=== PATIENT | female | born 1970 | race Caucasian/White ===

== ENCOUNTER 2019-09-16 12:25 | Outpatient (CLI) | payer OTHER, SELFPAY ==
[2019-09-16 12:41] LABS: Basophils Absolute Auto 0.03 K/mm3 (0.00-0.10); Basophils Percent Auto 0.2 % (0.0-1.0); Eosinophils Absolute Auto 0.25 K/mm3 (0.02-0.50); Eosinophils Percent Auto 2.1 % (1.0-6.0); Hematocrit 37.2 % (35.0-49.0); Immature Granulocyte Absolute 0.05 K/mm3 (0.00-0.00); Immature Granulocyte Percent A 0.4 % (0.0-0.0); Lymphocytes Absolute Auto 3.26 K/mm3 (1.10-4.50); Lymphocytes Percent Auto 27.1 % (18.0-42.0); Mean Corpuscular HGB Conc 32.3 g/dL (32.0-36.0); Mean Corpuscular Hemoglobin 28.6 pg (27.0-31.0); Mean Corpuscular Volume 88.8 fL (78.0-102.0); Mean Platelet Volume 9.8 fl (9.2-11.8); Monocytes Absolute Auto 0.52 K/mm3 (0.10-0.90); Monocytes Percent Auto 4.3 % (2.0-11.0); Neutrophils Absolute Auto 7.9 K/mm3 (1.7-7.2); Neutrophils Percent Auto 65.9 % (50.0-70.0); Platelet Count Result 255 K/mm3 (150-420); Red Blood Count 4.19 M/mm3 (4.20-5.40); Red Cell Distribution Width 13.5 % (11.6-14.4); White Blood Count 12.1 K/mm3 (4.8-10.8)
[2019-09-16 12:58] LABS: Creatinine Urine 208.85 mg/dL (40-278); MALB Creatinine Ratio 3.2 mg/g (0-30); Microalbumin Urine Random 6.7 mg/L
[2019-09-16 13:08] LABS: Influenza Control Valid (Valid)
[2019-09-16 14:08] LABS: Alanine Aminotransferase 15 U/L (14-59); Albumin Level 3.8 g/dL (3.4-5.0); Alkaline Phosphatase 70 U/L (46-116); Anion Gap 12.6 mmol/L (7-16); Aspartate Amino Transferase 12 U/L (15-37); Bilirubin,Total 0.4 mg/dL (0.00-1.00); Blood Urea Nitrogen 15 mg/dL (7-18); Carbon Dioxide 27 mmol/L (21-32); Chloride 105 mmol/L (98-108); Estimated Glomerular Filt Rate > 60; Free T4 Free Thyroxine 0.75 ng/dL (0.76-1.46); Glucose 87 mg/dL (70-99); Osmolality Calculated 289 mOsm/kg (285-295); Potassium 4.6 mmol/L (3.5-5.1); Sodium 140 mmol/L (136-145); Thyroid Stimulating Hormone 4.02 uIU/mL (0.36-3.74)
== END 2019-09-16 12:26 | disposition home or self-care (01) ==
LOC: CHSLAB 12:27
PROVIDERS: PCP Family Medicine; Visit Provider Family Medicine
DX: J02.9 Acute pharyngitis, unspecified (principal); I10 Essential (primary) hypertension; E03.8 Other specified hypothyroidism
CPT/HCPCS: 36415; 80053; 82043; 84439; 84443; 85025; 87081; 87804; 87880

== ENCOUNTER 2019-11-15 14:54 | Outpatient (CLI) | payer OTHER, SELFPAY ==
--- NOTE | ~2019-11-15 | XR_ITS ---
EXAMINATION: XR chest 2V DATE: 11/15/2019 15:11 INDICATION: Resolved fever and cough, shortness of breath TECHNIQUE: PA and lateral views of the chest are obtained. COMPARISON: 03/31/2018 FINDINGS: The lungs are free of acute opacities. There is no pleural effusion or pneumothorax. The ca rdiomediastinal silhouette is normal. There is mild to moderate thoracic spondylosis. IMPRESSION: 1. No acute cardiopulmonary abnormality. Reviewed, dictated and finalized at location A.
[2019-11-15 15:23] LABS: Influenza Control Valid (Valid)
== END 2019-11-15 14:55 | disposition home or self-care (01) ==
LOC: CHSLAB 14:56
PROVIDERS: PCP Family Medicine; Visit Provider Family Medicine
DX: R05 Cough (principal)
CPT/HCPCS: 71046; 87804

== ENCOUNTER 2020-04-08 09:59 | Outpatient (CLI) | payer OTHER, SELFPAY ==
[2020-04-08 11:08] LABS: Free T4 Free Thyroxine 0.98 ng/mL (0.78-2.19)
[2020-04-11 02:40] LABS: Thyroid Peroxidase Antibodies <1 IU/mL (<9)
[2020-04-12 05:44] LABS: Triiodothyronine T3 Free 2.6 pg/mL (2.3-4.2)
[2020-04-14 13:57] LABS: Thyroid Stimulating Immunoglob <89 % baseline (<140)
== END 2020-04-08 10:00 | disposition home or self-care (01) ==
PROVIDERS: PCP Family Medicine; Visit Provider Family Medicine
DX: E03.8 Other specified hypothyroidism (principal)
CPT/HCPCS: 36415; 84439; 84443; 84445; 84481; 86376

== ENCOUNTER 2021-08-13 09:01 | Outpatient (CLI) | payer OTHER, SELFPAY ==
--- NOTE | 2021-08-13 09:20 | PC.NURSE ---
Pt to room 227 amb. A&Ox3. Complains of SOB, has been since she was diagnosed. Infusion plan of care explained, consent read and signed. Pt has no questions or comments. Oriented to room. Call simmons in reach. Reminded to call with needs.
[2021-08-13] MEDS: ACETAMINOPHEN 325 MG TABLET 650 MG PO (09:38)
[2021-08-13] MEDS: diphenhydrAMINE HCl CAP 25 MG CAPSULE PO (09:38)
[2021-08-13] MEDS: FAMOTIDINE 20 MG TABLET PO (09:38)
--- NOTE | 2021-08-13 10:50 | PC.NURSE ---
Pt tolerated infusion well. Discharged to home amb per self.
== END 2021-08-13 09:02 | disposition home or self-care (01) ==
LOC: CHSTREATRM 09:03
PROVIDERS: PCP Family Medicine; Visit Provider Family Medicine
DX: U07.1 COVID-19 (principal); I10 Essential (primary) hypertension
CPT/HCPCS: A9270; M0245; Q0245

== ENCOUNTER 2021-08-21 14:16 | Outpatient (CLI) | payer OTHER, SELFPAY ==
--- NOTE | ~2021-08-21 | XR_ITS ---
EXAMINATION: XR chest 2V DATE: 08/21/2021 14:42 INDICATION: Cough. COVID-19 pneumonia. TECHNIQUE: Frontal and lateral views of the chest were obtained. COMPARISON: Chest 2 views 11/15/2019 FINDINGS: There are patchy airspace opacities in right midlung zone and all left lung zones. No pleur al effusion or pneumothorax. The heart size is normal. There is mild chronic anterior wedging of T12 vertebral body. IMPRESSION: 1. Multifocal lung disease, consistent with COVID-19 pneumonia. Reviewed, dictated and finalized at location B. PROOF DOOR MAKER
[2021-08-21 15:09] LABS: Basophils Absolute Auto 0.03 K/mm3 (0.00-0.10); Basophils Percent Auto 0.4 % (0.0-1.0); Eosinophils Percent Auto 1.3 % (1.0-6.0); Hematocrit 37.8 % (35.0-49.0); Hemoglobin 12.4 g/dL (12.0-15.0); Immature Granulocyte Absolute 0.07 K/mm3 (0.00-0.00); Immature Granulocyte Percent A 0.9 % (0.0-0.0); Lymphocytes Absolute Auto 2.54 K/mm3 (1.10-4.50); Lymphocytes Percent Auto 32.1 % (18.0-42.0); Mean Corpuscular HGB Conc 32.8 g/dL (32.0-36.0); Mean Corpuscular Hemoglobin 29.6 pg (27.0-31.0); Mean Corpuscular Volume 90.2 fL (78.0-102.0); Mean Platelet Volume 9.7 fl (9.2-11.8); Monocytes Absolute Auto 0.42 K/mm3 (0.10-0.90); Monocytes Percent Auto 5.3 % (2.0-11.0); Neutrophils Absolute Auto 4.8 K/mm3 (1.7-7.2); Platelet Count Result 300 K/mm3 (150-420); Red Blood Count 4.19 M/mm3 (4.20-5.40); Red Cell Distribution Width 12.7 % (11.6-14.4); White Blood Count 7.9 K/mm3 (4.8-10.8)
[2021-08-21 15:46] LABS: Alanine Aminotransferase 23 U/L (14-59); Alkaline Phosphatase 81 U/L (46-116); Anion Gap 9 mmol/L (8-16); Aspartate Amino Transferase 13 U/L (15-37); Bilirubin,Total 0.2 mg/dL (0.00-1.00); Blood Urea Nitrogen 19 mg/dL (7-18); Calcium 8.1 mg/dL (8.5-10.1); Carbon Dioxide 28 mmol/L (21-32); Chloride 102 mmol/L (98-108); Estimated Glomerular Filt Rate > 60; Glucose 106 mg/dL (70-99); Osmolality Calculated 290 mOsm/kg (285-295); Potassium 4.2 mmol/L (3.5-5.1); Sodium 139 mmol/L (136-145); Total Protein 6.2 g/dL (6.4-8.2)
[2021-08-21 16:21] LABS: D Dimer 1.04 mg/L (0.19-0.50)
== END 2021-08-21 14:17 | disposition home or self-care (01) ==
LOC: CHSLAB 14:19
PROVIDERS: PCP Family Medicine; Visit Provider Family Medicine
DX: R05.9 Cough, unspecified (principal); U07.1 COVID-19
CPT/HCPCS: 36415; 71046; 80053; 85025; 85380

== ENCOUNTER 2021-08-21 17:48 | Emergency (ER) | payer OTHER, SELFPAY ==
[2021-08-21 17:55] VITALS: BP 164/88; PULSE 80; RESP 17; TEMP 37.1; O2SAT 97
--- NOTE | 2021-08-21 20:04 | PC.NURSE ---
Pt ambulatory to intake, states she's here for a cat scan because my d-dimer is elevated . States she lives in [place] and is just going to go to their hospital and have it done.
== END 2021-08-21 20:04 | disposition left against medical advice (07) ==
LOC: ANHED 20:10
PROVIDERS: PCP Family Medicine
DX: R79.1 Abnormal coagulation profile (principal)
CPT/HCPCS: 99199

== ENCOUNTER 2021-08-21 20:32 | Emergency (ER) | payer OTHER, SELFPAY ==
--- NOTE | ~2021-08-21 | CT_ITS ---
EXAMINATION: CTA chest PE protocol DATE: 08/21/2021 22:10 INDICATION: Shortness of breath TECHNIQUE: Computed tomography angiography (CTA) of the chest was performed with 100 mL Omnipaque-350 intravenous contrast timed to evaluate the pulmonary arteries. Coronal maximum intensity projection 3D-reconstructions were created by the technologist. The dose-length product (DLP) was 841.73 mGy-cm. Automated exposure control and iterative reconstruction technique were employed. COMPARISON: None. FINDINGS: The pulmonary arteries are well-opacified. No pulmonary embolism is identified. Respiratory motion artifact gives the false appearance of pulmonary emboli in the left lower lobe. There are pat genaro nodular and groundglass opacities throughout the lungs. There is no pleural effusion or pneumotho rax. The heart size is normal. There is mild bilateral hilar and mediastinal lymphadenopathy. There i s an age-indeterminate compression fracture of the T12 vertebral body. IMPRESSION: 1. No pulmonary embolus identified. 2. Patchy nodular and groundglass opacities throughout the lungs, consistent with multifocal pneumoni a, possibly COVID 19. Reviewed, dictated and finalized at location F. ODYNAMICS PROFESSOR IMPRESSION: 1. No pulmonary embolus identified. 2. Patchy nodular and groundglass opacities throughout the lungs, consistent wi th multifocal pneumonia, possibly COVID 19.
[2021-08-21 20:56] VITALS: BP 172/90; PULSE 72; RESP 18; TEMP 36.7; O2SAT 97
--- NOTE | 2021-08-21 20:58 | ED.SOB ---
HPI - SOB/Dyspnea General Chief Complaint: Unspecified Stated Complaint: sent from doctor for elevated D-Dimer Time Seen by Provider: 08/21/21 20:58 Source: patient Mode of arrival: ambulatory Limitations: no limitations History of Present Illness HPI Narrative: 50-year-old woman comes in today after having had a positive D-dimer at her doctor's office. She was diagnosed with COVID on August 09 after having been symptomatic for 3 days. She went to her doctor's office today still having some shortness of breath but improving. She was put on doxycycline and amoxicillin and instructed to be screen for PE. Cough is nonproductive or productive of clear sputum and she is no longer having fever. She denies chest pain, hemoptysis. She has no personal history of VTE. She received antibody (bamlanivimab/etesevimab) infusion on August 13. MD elicited complaint: shortness of breath Pertinent past history: pneumonia Context: recent illness Timing: constant Severity: moderate Exacerbating factors: exertion and talking Relieving factors: rest Associated symptoms: cough Treatment prior to arrival: none Related Data Home oxygen amount: none Home Medications Medication Instructions Recorded Confirmed alprazolam 0.5 mg PO DAILY 08/21/21 08/21/21 amoxicillin 875 mg PO BID 08/21/21 08/21/21 citalopram 40 mg PO DAILY 08/21/21 08/21/21 doxycycline monohydrate 100 mg PO BID 08/21/21 08/21/21 irbesartan-hydrochlorothiazide 150 tablet PO DAILY 08/21/21 08/21/21 levothyroxine [Synthroid] 100 mcg PO DAILY 08/21/21 08/21/21 omeprazole 20 mg PO DAILY 08/21/21 08/21/21 zolpidem 10 mg PO DAILY 08/21/21 08/21/21 Allergies Allergy/AdvReac Type Severity Reaction Status Date / Time No Known Allergies Allergy Mild Verified 04/09/10 16:19 Review of Systems Constitutional: Constitutional: Denies chills and Denies fever(s) ENT: Denies nasal congestion and Denies sore throat Cardiovascular: Cardiovascular: Denies chest pain and Denies radiating jaw, neck or arm pain Respiratory: Respiratory: Reports cough, Reports dyspnea and Denies wheezing Gastrointestinal: Gastrointestinal: Denies abdominal pain, Denies diarrhea, Denies nausea and Denies vomiting Integumentary/Breasts: Skin/Breast: Denies pruritus, Denies erythema and Denies rash Neurologic: Denies vertigo, Denies dizziness and Denies syncope [facility] Past Medical History Medical History (Updated 08/21/21 @ 22:45 by Adair Harper MD) GERD (gastroesophageal reflux disease) Hypertension Hypothyroidism Social History Social History (Updated 08/21/21 @ 21:15 by Adair Harper MD) Smoking status: Never smoker Living arrangements: with family Exam Const: General: healthy appearing, no acute distress and alert Orientation/consciousness: patient oriented x3 Limitations: no limitations HENMT: Head: normal to inspection Face and sinus: normal facial exam Mouth: Yes moist mucous membranes Throat: posterior oropharynx normal Eyes: Conjunctivae: conjunctivae normal Pupils: Equal, round and reactive pupils present EOM: EOMs intact bilaterally Resp: Effort & Inspection: normal respiratory effort and not labored Auscultation: clear to auscultation bilaterally, no rales, no rhonchi, no wheezes and diminished lung sounds (Mildly throughout) Cardio: Rate: regular rate Rhythm: regular rhythm Heart sounds: no murmurs Skin: General skin exam: normal color, no jaundice and no pallor Rashes: no rashes Neuro: General: patient oriented x3, moves all extremities, no focal motor deficits and CN's II-XI intact bilaterally Speech: normal speech Gait exam (Neuro): Normal gait present Extrem: General: normal to inspection and no clubbing, cyanosis or edema Psych: Mental Status: mental status grossly normal Affect: normal affect Attitude: cooperative Thought content: Yes Normal thought content present Course Vital Signs Vital signs: Vital Signs Temperature 36.7 C 08/11
[2021-08-21 21:18] LABS: SPREG INTERNAL CONTROL Positive; Serum Qual hCG Negative
[2021-08-21 22:46] VITALS: BP 151/97; PULSE 70; RESP 18; TEMP 36.6; O2SAT 96
== END 2021-08-21 22:53 | disposition home or self-care (01) ==
PROVIDERS: Emergency Provider Emergency Medicine; PCP Family Medicine
DX: R79.1 Abnormal coagulation profile (principal); R06.02 Shortness of breath
CPT/HCPCS: 36415; 71275; 84703; 99282; 99284; Q9967

== ENCOUNTER 2021-08-22 08:08 | Outpatient (CLI) | payer OTHER, SELFPAY ==
--- NOTE | ~2021-08-22 | US_ITS ---
EXAMINATION: US venous doppler [facility] DATE: 08/22/2021 08:35 INDICATION: Dyspnea TECHNIQUE: Grayscale ultrasound images without and with compression and Doppler ultrasound images of the bilateral lower extremity veins were obtained. COMPARISON: None. FINDINGS: The visualized portions of right common femoral vein, profunda (deep) femoral vein, femoral vein, pop liteal vein, posterior tibial veins, peroneal veins, gastrocnemius vein and greater saphenous vein ou tflow are patent. The visualized portions of left common femoral vein, profunda femoral vein, femoral vein, popliteal v ein, posterior tibial veins, peroneal veins, gastrocnemius vein and greater saphenous vein outflow ar e patent. IMPRESSION: 1. No deep venous thrombosis in either lower limb. Reviewed, dictated and finalized at location A. N DRIVER
== END 2021-08-22 08:09 | disposition home or self-care (01) ==
LOC: CHSIMG 08:10
PROVIDERS: PCP Family Medicine; Visit Provider Emergency Medicine
DX: R06.00 Dyspnea, unspecified (principal); R79.89 Other specified abnormal findings of blood chemistry
CPT/HCPCS: 93970

== ENCOUNTER 2022-01-03 11:09 | Outpatient (CLI) | payer OTHER, SELFPAY ==
--- NOTE | ~2022-01-03 | US_ITS ---
US soft tissue head and neck 01/03/2022 14:20 Indication: Enlarged lymph nodes. Acute lymphangitis. Procedure: High-resolution ultrasound of the right face/neck Comparison: No prior studies for comparison. Findings: In the area of palpable concern near the parotid glands there are 2 lymph nodes with normal fatty hilum measuring 7 and 6 mm maximum dimension, within normal limits. No suspicious masses are i dentified. Impression: 1: Normal lymph nodes of the right facial region measuring up to 7 mm maximum dimension which do not appear pathologic. Reviewed, dictated and finalized at location A. Impression: 1: Normal lymph nodes of the right facial region measuring up to 7 mm maximum d imension which do not appear pathologic.
--- NOTE | ~2022-01-03 | XR_ITS ---
XR chest 2V DATE: 01/03/2022 11:47 INDICATION: Shortness of breath and lethargy since Covid 19 infection in August 2021 TECHNIQUE: 2 views COMPARISON: 08/21/2021 CT the pulmonary scan 08/21/2021 2 view chest FINDINGS: Normal heart size. No hilar or mediastinal enlargement. The lungs are clear of infiltrate o r consolidation. No pleural effusion or pulmonary vascular congestion or pneumothorax. Degenerative c hanges of the thoracic spine. IMPRESSION: No active cardiopulmonary disease Reviewed, dictated and finalized at location A.
--- NOTE | ~2022-01-03 | US_ITS ---
US axilla RT 01/03/2022 14:21 Indication: Palpable right axillary lump with pain. History of Covid shot on 11/26/2021 Procedure: High-resolution Limited ultrasound of the right axilla Comparison: No prior studies for comparison. Findings: There are 2 lymph nodes identified in the area of palpable concern largest measuring 2.1 x 2 x 1.2 cm and second one measuring 1.5 x 1.2 x 0.9 cm. Both lymph nodes exhibit normal fatty hilum. No other masses or fluid collections. Impression: 1: Mildly prominent right axillary lymph nodes with normal fatty hilum in the area of palpable concer n. These are likely benign reactive lymph nodes. Recommend follow-up ultrasound as clinically indicat ed. Reviewed, dictated and finalized at location A. Impression: 1: Mildly prominent right axillary lymph nodes with normal fatty hilum in the a sanna of palpable concern. These are likely benign reactive lymph nodes. Recommen d follow-up ultrasound as clinically indicated.
[2022-01-03 11:32] LABS: Basophils Absolute Auto 0.03 K/mm3 (0.00-0.10); Basophils Percent Auto 0.3 % (0.0-1.0); Hematocrit 36.6 % (35.0-49.0); Hemoglobin 11.8 g/dL (12.0-15.0); Immature Granulocyte Absolute 0.04 K/mm3 (0.00-0.00); Immature Granulocyte Percent A 0.4 % (0.0-0.0); Lymphocytes Percent Auto 29.5 % (18.0-42.0); Mean Corpuscular HGB Conc 32.2 g/dL (32.0-36.0); Mean Corpuscular Hemoglobin 28.9 pg (27.0-31.0); Mean Corpuscular Volume 89.7 fL (78.0-102.0); Mean Platelet Volume 9.9 fl (9.2-11.8); Monocytes Percent Auto 5.1 % (2.0-11.0); Neutrophils Absolute Auto 6.3 K/mm3 (1.7-7.2); Neutrophils Percent Auto 63.7 % (50.0-70.0); Platelet Count Result 270 K/mm3 (150-420); Red Blood Count 4.08 M/mm3 (4.20-5.40); Red Cell Distribution Width 12.8 % (11.6-14.4); White Blood Count 9.8 K/mm3 (4.8-10.8)
[2022-01-03 11:44] LABS: Add Urine Microscopic? YES; Appearance Urine Clear (Clear); Bilirubin Urine Negative (Negative); Blood Urine 2+ (Negative); Color Urine Light Yellow (Yellow); Glucose Urine UA Negative (Negative); Ketones Urine Negative (Negative); Leukocyte Esterase Ur Negative (Negative); Nitrate Urine Negative (Negative); Protein Urine Negative (Negative); Urobilinogen Urine 0.2 mg/dL (0.2-1.0)
[2022-01-03 11:46] LABS: Squamous Epithelial Cell Urine Few /hpf (Few); WBC Urine 0-3 /hpf (0-3)
[2022-01-03 11:48] LABS: Bacteria Urine 1+ /hpf
[2022-01-03 12:00] LABS: Alanine Aminotransferase 15 U/L (14-59); Alkaline Phosphatase 68 U/L (46-116); Anion Gap 5 mmol/L (8-16); Aspartate Amino Transferase 12 U/L (15-37); Bilirubin,Total 0.2 mg/dL (0.00-1.00); Blood Urea Nitrogen 13 mg/dL (7-18); Calcium 7.9 mg/dL (8.5-10.1); Carbon Dioxide 28 mmol/L (21-32); Chloride 103 mmol/L (98-108); Creatine Kinase 90 U/L (26-192); Estimated Glomerular Filt Rate > 60; Free T4 Free Thyroxine 1.07 ng/dL (0.76-1.46); Glucose 80 mg/dL (70-99); Osmolality Calculated 281 mOsm/kg (285-295); Potassium 4.2 mmol/L (3.5-5.1); Sodium 136 mmol/L (136-145); Thyroid Stimulating Hormone 0.18 uIU/mL (0.36-3.74); Total Protein 6.6 g/dL (6.4-8.2)
[2022-01-03 12:12] LABS: SARS-CoV-2 RNA PCR Negative (Negative)
[2022-01-03 12:38] LABS: Erythrocyte Sedimentation Rate 30 mm/hr (0-20)
== END 2022-01-03 11:10 | disposition home or self-care (01) ==
LOC: CHSIMG 11:14
PROVIDERS: PCP Family Medicine; Visit Provider Family Medicine
DX: M79.10 Myalgia, unspecified site (principal); R53.83 Other fatigue; R06.00 Dyspnea, unspecified; R59.1 Generalized enlarged lymph nodes; L03.121 Acute lymphangitis of right axilla
CPT/HCPCS: 36415; 71046; 76536; 76882; 80053; 81001; 82550; 84439; 84443; 85025; 85652; C9803; U0003; U0005

== ENCOUNTER 2022-02-05 08:39 | Outpatient (CLI) | payer OTHER, SELFPAY ==
--- NOTE | 2022-02-05 11:00 | NEURO_ITS ---
Impression: # Complains of numbness and pain in right upper extremity. # Evolving right Carpal Tunnel Syndrome. # Mild right ulnar neuropathy across the elbow. # Needle/EMG exam not requested. Nerve Conduction Studies Anti Sensory Summary Table Stim Site NR Peak (ms) P-T Amp (?V) Site1 Site2 Delta-P (ms) Dist (cm) Forrest (m/s) Right Median Anti Sensory (2-3nd Digit) Wrist 4.3 26.3 Wrist 2-3nd Digit 4.3 14.0 33 Wrist 4.3 42.7 Wrist 2-3nd Digit 4.3 14.0 33 Right Radial Anti Sensory (Base 1st Digit) Wrist 2.1 31.0 Wrist Base 1st Digit 2.1 0.0 Right Ulnar Anti Sensory (5th Digit) Wrist 2.2 43.5 Wrist 5th Digit 2.2 14.0 64 Motor Summary Table Stim Site NR Onset (ms) O-P Amp (mV) Site1 Site2 Delta-0 (ms) Dist (cm) Forrest (m/s) Right Median Motor (Abd Poll Brev) Wrist 3.4 1.2 Elbow Wrist 5.3 28.0 53 Elbow 8.7 0.5 Right Ulnar Motor (Abd Dig Minimi) Wrist 2.2 7.0 A Elbow Wrist 6.2 31.0 50 A Elbow 8.4 4.9 B Elbow Wrist 3.6 20.0 56 B Elbow 5.8 3.2 F Wave Studies NR F-Lat (ms) L-R F-Lat (ms) Right Median (Mrkrs) (Abd Poll Brev) 29.25 Right Ulnar (Mrkrs) (Abd Dig Min) 28.05 MTDD
== END 2022-02-05 08:40 | disposition home or self-care (01) ==
LOC: ANHNEURO 08:45
PROVIDERS: PCP Family Medicine; Visit Provider Family Medicine
DX: G56.21 Lesion of ulnar nerve, right upper limb (principal); G56.01 Carpal tunnel syndrome, right upper limb
CPT/HCPCS: 95909

== ENCOUNTER 2022-02-08 09:14 | Outpatient (CLI) | payer OTHER, SELFPAY ==
--- NOTE | ~2022-02-08 | MR_ITS ---
EXAMINATION: MRA brain wo con DATE: 02/08/2022 10:15 INDICATION: Chronic daily headaches and less frequent right-sided migraines. TECHNIQUE: Magnetic resonance angiography (MRA) of the brain was performed without intravenous contrast by the 3 D [id number] technique. COMPARISON: None. FINDINGS: There is normal flow related signal seen within the vertebral, basilar and internal carotid arteries. There is no proximal stenosis. Vertebral arteries are codominant. There are no aneurysms identified . Both A1 and P1 segments are patent. The right P1 segment is smaller than the left with collateral flow arising from a similar sized patent right posterior communicating artery. There is also a patent anterior communicating artery. Flow in the cerebral arteries is symmetric. Visualized portion of the brain appears normal. IMPRESSION: 1. Unremarkable cerebral MR angiogram with no hemodynamically significant stenosis or aneurysm. Reviewed, dictated and finalized at location A. IMPRESSION: 1. Unremarkable cerebral MR angiogram with no hemodynamically significant steno sis or aneurysm.
== END 2022-02-08 09:15 | disposition home or self-care (01) ==
PROVIDERS: PCP Family Medicine; Visit Provider Family Medicine
DX: R51.9 Headache, unspecified (principal)
CPT/HCPCS: 70544

== ENCOUNTER 2022-02-19 12:53 | Outpatient (CLI) | payer OTHER, SELFPAY ==
--- NOTE | ~2022-02-19 | MMUS_ITS ---
EXAMINATION: MM diagnostic pavan BI w elvia, US breast RT limited HISTORY: Pain in the outer right breast and right axilla TECHNIQUE: Craniocaudal, mediolateral, and mediolateral oblique 3-D tomosynthesis images of the breas ts were performed and synthetic 2-D images were generated. CAD analysis was submitted and interpreted . High resolution limited right breast ultrasound was performed. COMPARISON: 10/25/2016, 06/21/2000 BREAST PARENCHYMAL COMPOSITION: There are scattered areas of fibroglandular density. FINDINGS: MAMMOGRAPHIC FINDINGS: Right breast: No mammographic correlate is identified for the patient's right breast pain. There is n o suspicious mass, calcification, or architectural distortion to suggest malignancy. There has been no suspicious interval change. Left breast: A stable intramammary lymph node is noted in the upper outer quadrant of the left breast . There is no suspicious mass, calcification, or architectural distortion to suggest malignancy. The re has been no suspicious interval change. ULTRASOUND: There is no evidence of focal abnormal solid or cystic mass in the vicinity of the patient reported r ight breast or right axillary pain IMPRESSION: 1. No specific mammographic or sonographic correlate is identified for the patient's right breast or right axillary pain. Further evaluation at this time should be based on clinical assessment. Continue d follow-up physical examination is recommended. 2. Recommend routine screening mammography in one year. BI-RADS Category 2: Benign finding(s). Reviewed, dictated and finalized at location A. IMPRESSION: 1. No specific mammographic or sonographic correlate is identified for the aubrey ent's right breast or right axillary pain. Further evaluation at this time shou ld be based on clinical assessment. Continued follow-up physical examination is recommended. 2. Recommend routine screening mammography in one year. BI-RADS Category 2: Benign finding(s).
== END 2022-02-19 12:54 | disposition home or self-care (01) ==
LOC: ANHIMG 12:58
PROVIDERS: PCP Family Medicine; Visit Provider Obstetrics & Gynecology
DX: N64.4 Mastodynia (principal)
CPT/HCPCS: 76642; 77062; 77066; G0279

== ENCOUNTER 2022-04-24 19:42 | Outpatient (CLI) | payer OTHER, SELFPAY ==
--- NOTE | ~2022-04-24 | XR_ITS ---
EXAMINATION: XR chest 2V Exam Date/Time: 04/24/2022 20:08 CDT HISTORY: MID CP X 12 HOURS Comparison: 01/03/2022. RESULT: Lines, tubes, and devices: None. Lungs and pleura: Clear. Cardiomediastinal silhouette: Stable. Other: No acute osseous or upper abdominal finding. IMPRESSION: No acute cardiopulmonary process. Reviewed, dictated and finalized at location K.
--- NOTE | 2022-04-24 20:18 | ECG_ITS ---
Measurements Intervals [place] Rate: 60 P: 30 AL: 148 QRS: -2 QRSD: 87 T: 23 QT: 437 QTc: 440 Interpretive Statements SINUS RHYTHM VOLTAGE CRITERIA FOR LVH BORDERLINE ECG NO PREVIOUS ECG AVAILABLE FOR COMPARISON Electronically Signed On 04-24-2022 21:38:15 CDT by Luiz De Luna D.O.
[2022-04-24 20:29] LABS: Add Urine Microscopic? NO; Appearance Urine Clear (Clear); Bilirubin Urine Negative (Negative); Blood Urine Negative (Negative); Color Urine Yellow (Yellow); Glucose Urine UA Negative (Negative); Ketones Urine Negative (Negative); Leukocyte Esterase Ur Negative (Negative); Nitrate Urine Negative (Negative); Protein Urine Negative (Negative); Specific Grav Ur >= 1.030 (1.010-1.020); Urobilinogen Urine 0.2 mg/dL (0.2-1.0); pH Urine 5.5 (5.0-8.0)
[2022-04-24 20:30] LABS: Basophils Absolute Auto 0.03 K/mm3 (0.00-0.10); Basophils Percent Auto 0.3 % (0.0-1.0); Eosinophils Absolute Auto 0.11 K/mm3 (0.02-0.50); Eosinophils Percent Auto 1.1 % (1.0-6.0); Hematocrit 35.5 % (35.0-49.0); Hemoglobin 11.5 g/dL (12.0-15.0); Immature Granulocyte Absolute 0.03 K/mm3 (0.00-0.00); Immature Granulocyte Percent A 0.3 % (0.0-0.0); Lymphocytes Absolute Auto 3.51 K/mm3 (1.10-4.50); Lymphocytes Percent Auto 34.1 % (18.0-42.0); Mean Corpuscular HGB Conc 32.4 g/dL (32.0-36.0); Mean Corpuscular Hemoglobin 29.5 pg (27.0-31.0); Monocytes Absolute Auto 0.53 K/mm3 (0.10-0.90); Monocytes Percent Auto 5.2 % (2.0-11.0); Neutrophils Absolute Auto 6.1 K/mm3 (1.7-7.2); Platelet Count Result 282 K/mm3 (150-420); Red Cell Distribution Width 12.9 % (11.6-14.4); White Blood Count 10.3 K/mm3 (4.8-10.8)
[2022-04-24 20:42] LABS: Alanine Aminotransferase 18 U/L (14-59); Albumin Level 3.4 g/dL (3.4-5.0); Alkaline Phosphatase 78 U/L (46-116); Anion Gap 4 mmol/L (8-16); Aspartate Amino Transferase 12 U/L (15-37); Bilirubin,Total 0.3 mg/dL (0.00-1.00); Blood Urea Nitrogen 20 mg/dL (7-18); Calcium 8.3 mg/dL (8.5-10.1); Carbon Dioxide 31 mmol/L (21-32); Chloride 102 mmol/L (98-108); Creatine Kinase 63 U/L (26-192); Estimated Glomerular Filt Rate 59; Glucose 111 mg/dL (70-99); Osmolality Calculated 287 mOsm/kg (285-295); Sodium 137 mmol/L (136-145); Total Protein 6.6 g/dL (6.4-8.2); Troponin I 4.4 ng/L (0.00-60.4)
[2022-04-24 20:45] LABS: Creatine Kinase MB < 0.50 ng/mL (0.00-5.00)
[2022-04-24 21:07] LABS: HIV 1 P24 AG Negative (Negative); HIV 1/2 AB Negative (Negative)
[2022-04-25 17:00] LABS: Ferritin 26 ng/mL (8-252); Iron 33 ug/dL (50-170); Percent Iron Saturation 10 % (12-57)
[2022-04-26 13:10] LABS: MALB Creatinine Ratio 2.7 mg/g (0-30)
[2022-04-29 17:43] LABS: RPR Screen Non-Reactive (Non-Reactive)
== END 2022-04-24 19:43 | disposition home or self-care (01) ==
PROVIDERS: PCP Family Medicine; Visit Provider Family Medicine
DX: Z20.2 Contact with and (suspected) exposure to infections with a predominantly sexual mode of transmission (principal); I10 Essential (primary) hypertension; R07.9 Chest pain, unspecified; E03.8 Other specified hypothyroidism
CPT/HCPCS: 36415; 71046; 80053; 81003; 82043; 82550; 82553; 82728; 83540; 83550; 84443; 84484; 85025; 86592; 86703; 87491; 87591; 87661; 93005

== ENCOUNTER 2022-04-29 16:33 | Outpatient (CLI) | payer OTHER, SELFPAY ==
--- NOTE | ~2022-04-29 | US_ITS ---
EXAMINATION: US pelvic complete w TV DATE: 04/29/2022 17:12 INDICATION: N93.9 - Abnormal uterine and vaginal bleeding, unspecified TECHNIQUE: Multiple transabdominal and endovaginal sonographic images of the pelvis were obtained. COMPARISON: None. FINDINGS: Uterus: 7.4 x 4.9 x 5.4 cm. 5 mm cystic area adjacent to the endometrium fundus. Endometrial complex measures 5 mm. Right Ovary: 2.2 x 1.3 x 1.4 cm. Vascular flow is present. 9 mm circumscribed right ovarian lesion li mo representing a hemorrhagic cyst, endometrioma or dermoid. Left Ovary: 2.1 x 1.6 x 1.0 cm. 7 mm cyst/dominant follicle. Vascular flow is present. There is no free fluid in the pelvis. IMPRESSION: 5 mm subendometrial cystic area, if testing is negative this finding likely represents a be nign cystic structure and is of doubtful clinical significance. 9 mm right ovarian hemorrhagic cyst, endometrioma, or dermoid. Reviewed, dictated and finalized at location K. IMPRESSION: 5 mm subendometrial cystic area, if testing is negative this finding likely represents a benign cystic structure and is of doubtful clinical signifi cance. 9 mm right ovarian hemorrhagic cyst, endometrioma, or dermoid.
== END 2022-04-29 16:34 | disposition home or self-care (01) ==
PROVIDERS: PCP Family Medicine; Visit Provider Obstetrics & Gynecology
DX: N93.9 Abnormal uterine and vaginal bleeding, unspecified (principal); N83.201 Unspecified ovarian cyst, right side
CPT/HCPCS: 76830; 76856

== ENCOUNTER 2022-06-13 10:36 | Outpatient (CLI) | payer OTHER, SELFPAY ==
[2022-06-13 11:27] LABS: Influenza A QL RT-PCR Negative (Negative); Influenza B QL RT-PCR Negative (Negative); SARS-CoV-2 RNA PCR Negative (Negative)
[2022-06-13 11:28] LABS: RSV RNA, RT-PCR Negative (Negative)
== END 2022-06-13 10:37 | disposition home or self-care (01) ==
LOC: CHSLAB 10:37
PROVIDERS: PCP Family Medicine; Visit Provider Family Medicine
DX: R05.1 Acute cough (principal); Z20.822 Contact with and (suspected) exposure to COVID-19
CPT/HCPCS: 87502; 87637; U0003; U0005

== ENCOUNTER 2022-09-11 17:18 | Outpatient (CLI) | payer OTHER, SELFPAY ==
[2022-09-11 18:08] LABS: Thyroid Stimulating Hormone 1.56 uIU/mL (0.36-3.74)
[2022-09-14 04:45] LABS: FSH 4.6 mIU/mL (***)
[2022-09-18 22:01] LABS: Estradiol, Ultrasensitive 152 pg/mL
== END 2022-09-11 17:19 | disposition home or self-care (01) ==
LOC: CHSLAB 17:19
PROVIDERS: PCP Student in an Organized Health Care Education/Training Program; Visit Provider Student in an Organized Health Care Education/Training Program
DX: N92.0 Excessive and frequent menstruation with regular cycle (principal)
CPT/HCPCS: 36415; 82670; 83001; 84443

== ENCOUNTER 2022-10-29 16:25 | Outpatient (CLI) | payer OTHER, SELFPAY ==
--- NOTE | ~2022-10-29 | US_ITS ---
Pelvic ultrasound. Clinical History: Pelvic pain Technique: Realtime transabdominal and transvaginal scanning of the pelvis was performed. Color flow Doppler and Doppler spectral analysis were performed. Findings: The uterus is anteverted, and measures 10.3 x 5.7 x 7.1 cm. The endometrial stripe has a t hickness of 5 mm. Small intramural fibroid measures 1.2 cm in maximum diameter. The right ovary measures 1.9 x 1.2 x 2.0 cm. No significant right ovarian or adnexal mass is seen. The left ovary measures 1.8 x 2.1 x 2.0 cm. No significant left ovarian or adnexal mass is seen. Vascular flow present in both ovaries on Doppler spectral analysis. There is no evidence of free fluid in the cul de sac. Impression: Small uterine fibroid, as detailed above. Reviewed, dictated and finalized at [facility]. Impression: Small uterine fibroid, as detailed above.
== END 2022-10-29 16:26 | disposition home or self-care (01) ==
PROVIDERS: PCP Student in an Organized Health Care Education/Training Program; Visit Provider Student in an Organized Health Care Education/Training Program
DX: R10.2 Pelvic and perineal pain (principal); D25.9 Leiomyoma of uterus, unspecified
CPT/HCPCS: 76830; 76856

== ENCOUNTER 2022-10-30 18:17 | Outpatient (CLI) | payer OTHER, SELFPAY ==
[2022-10-30 18:33] LABS: Basophils Absolute Auto 0.04 K/mm3 (0.00-0.10); Basophils Percent Auto 0.3 % (0.0-1.0); Eosinophils Absolute Auto 0.06 K/mm3 (0.02-0.50); Eosinophils Percent Auto 0.5 % (1.0-6.0); Hematocrit 34.2 % (35.0-49.0); Immature Granulocyte Absolute 0.04 K/mm3 (0.00-0.00); Immature Granulocyte Percent A 0.3 % (0.0-0.0); Mean Corpuscular HGB Conc 32.2 g/dL (32.0-36.0); Mean Corpuscular Hemoglobin 27.8 pg (27.0-31.0); Mean Corpuscular Volume 86.4 fL (78.0-102.0); Mean Platelet Volume 9.9 fl (9.2-11.8); Monocytes Absolute Auto 0.43 K/mm3 (0.10-0.90); Monocytes Percent Auto 3.6 % (2.0-11.0); Neutrophils Percent Auto 66.3 % (50.0-70.0); Platelet Count Result 310 K/mm3 (150-420); Red Blood Count 3.96 M/mm3 (4.20-5.40); Red Cell Distribution Width 13.3 % (11.6-14.4); White Blood Count 12.1 K/mm3 (4.8-10.8)
[2022-10-30 19:34] LABS: Alanine Aminotransferase 22 U/L (14-59); Albumin Level 3.6 g/dL (3.4-5.0); Alkaline Phosphatase 70 U/L (46-116); Anion Gap 11 mmol/L (8-16); Aspartate Amino Transferase 19 U/L (15-37); Bilirubin,Total 0.4 mg/dL (0.00-1.00); Blood Urea Nitrogen 17 mg/dL (7-18); Calcium 8.4 mg/dL (8.5-10.1); Carbon Dioxide 27 mmol/L (21-32); Chloride 102 mmol/L (98-108); Estimated Glomerular Filt Rate 56; Glucose 136 mg/dL (70-99); Osmolality Calculated 293 mOsm/kg (285-295); Potassium 3.5 mmol/L (3.5-5.1); Sodium 140 mmol/L (136-145); Thyroid Stimulating Hormone 0.58 uIU/mL (0.36-3.74)
[2022-10-31 09:57] LABS: Hemoglobin A1C 5.8 % (<5.7)
[2022-10-31 10:25] LABS: Ferritin 20 ng/mL (8-252); Iron 26 ug/dL (50-170); Percent Iron Saturation 7 % (12-57)
== END 2022-10-30 18:18 | disposition home or self-care (01) ==
LOC: CHSLAB 18:18
PROVIDERS: PCP Family Medicine; Visit Provider Family Medicine
DX: R22.2 Localized swelling, mass and lump, trunk (principal); E03.8 Other specified hypothyroidism; R73.9 Hyperglycemia, unspecified; D64.9 Anemia, unspecified
CPT/HCPCS: 36415; 80053; 82728; 83036; 83540; 83550; 84443; 85025

== ENCOUNTER 2022-12-13 17:16 | Outpatient (CLI) | payer OTHER, SELFPAY ==
--- NOTE | ~2022-12-13 | XR_ITS ---
EXAMINATION: XR chest 2V Exam Date/Time: 12/13/2022 17:38 CDT HISTORY: UPPER L CP, COUGH, SOB, BODY ACHES, EDEMA TO BILAT LE X 1 WK Comparison: 04/24/2022. RESULT: Lines, tubes, and devices: None. Lungs and pleura: Clear. Cardiomediastinal silhouette: Stable. Other: No acute osseous or upper abdominal finding. IMPRESSION: No acute cardiopulmonary process. Reviewed, dictated and finalized at location K.
[2022-12-13 17:36] LABS: Basophils Absolute Auto 0.04 K/mm3 (0.00-0.10); Basophils Percent Auto 0.3 % (0.0-1.0); Eosinophils Absolute Auto 0.16 K/mm3 (0.02-0.50); Eosinophils Percent Auto 1.4 % (1.0-6.0); Hemoglobin 10.2 g/dL (12.0-15.0); Immature Granulocyte Absolute 0.03 K/mm3 (0.00-0.00); Immature Granulocyte Percent A 0.3 % (0.0-0.0); Lymphocytes Absolute Auto 3.86 K/mm3 (1.10-4.50); Mean Corpuscular HGB Conc 31.9 g/dL (32.0-36.0); Mean Corpuscular Hemoglobin 26.8 pg (27.0-31.0); Mean Platelet Volume 9.7 fl (9.2-11.8); Monocytes Absolute Auto 0.66 K/mm3 (0.10-0.90); Monocytes Percent Auto 5.6 % (2.0-11.0); Neutrophils Percent Auto 59.4 % (50.0-70.0); Platelet Count Result 264 K/mm3 (150-420); Red Blood Count 3.81 M/mm3 (4.20-5.40); Red Cell Distribution Width 13.5 % (11.6-14.4); White Blood Count 11.7 K/mm3 (4.8-10.8)
[2022-12-13 18:02] LABS: Alanine Aminotransferase 20 U/L (14-59); Albumin Level 3.4 g/dL (3.4-5.0); Alkaline Phosphatase 75 U/L (46-116); Anion Gap 8 mmol/L (8-16); Aspartate Amino Transferase 14 U/L (15-37); Bilirubin,Total 0.2 mg/dL (0.00-1.00); Blood Urea Nitrogen 21 mg/dL (7-18); Calcium 8.5 mg/dL (8.5-10.1); Carbon Dioxide 30 mmol/L (21-32); Chloride 103 mmol/L (98-108); Creatine Kinase 236 U/L (26-192); Estimated Glomerular Filt Rate > 60; Glucose 106 mg/dL (70-99); NT Pro B Type Natriuretic Pept 35 pg/mL (0-125); Osmolality Calculated 295 mOsm/kg (285-295); Potassium 3.3 mmol/L (3.5-5.1); Sodium 141 mmol/L (136-145); Troponin I 7.1 ng/L (0.00-60.4)
[2022-12-13 18:04] LABS: D Dimer 0.67 mg/L (0.19-0.50)
== END 2022-12-13 17:17 | disposition home or self-care (01) ==
LOC: CHSIMG 17:18
PROVIDERS: PCP Family Medicine; Visit Provider Family Medicine
DX: R06.00 Dyspnea, unspecified (principal); R07.9 Chest pain, unspecified
CPT/HCPCS: 36415; 71046; 80053; 82550; 82553; 83880; 84484; 85025; 85380

== ENCOUNTER 2022-12-13 19:31 | Emergency (ER) | payer OTHER, SELFPAY ==
--- NOTE | ~2022-12-13 | CT_ITS ---
EXAMINATION: CTA chest PE protocol DATE: 12/13/2022 20:06 INDICATION: soa chest pain elevated ddimer TECHNIQUE: Computed tomography angiography (CTA) of the chest was performed with 100 mL Omnipaque-350 intravenous contrast timed to evaluate the pulmonary arteries. Coronal maximum intensity projection 3D-reconstructions were created by the technologist. The dose-length product (DLP) was 956.96 mGy-cm. Automated exposure control and iterative reconstruction technique were employed. COMPARISON: 08/21/2021. FINDINGS: Lung parenchyma and airways: Clear. Pleura: Unremarkable. Thoracic inlet, axillae and chest wall: Unremarkable. Thoracic aorta: Normal. Mediastinum: Normal. Heart and pericardium: Normal. Coronary artery calcifications: Absent. Upper abdomen: Cholelithiasis. Bones: No acute osseous finding. Stable moderate anterior wedge deformity at T12. Pulmonary arteries: Study quality: Adequate. No pulmonary emboli detected. IMPRESSION: No CT evidence of acute pulmonary embolus. No acute intrathoracic process detected. Reviewed, dictated and finalized at location K. IMPRESSION: No CT evidence of acute pulmonary embolus. No acute intrathoracic process detec bola.
[2022-12-13 19:33] VITALS: BP 134/85; PULSE 75; RESP 18; TEMP 36.9; O2SAT 97
--- NOTE | 2022-12-13 19:37 | ED.GENADULT ---
HPI - General Adult General Chief complaint: Unspecified Stated complaint: Lab Follow up Source: patient Mode of arrival: ambulatory Limitations: no limitations History of Present Illness HPI narrative: 52-year-old white female complain of shortness of breath and intermittent left chest pain on and off this week lower extremity swelling bilaterally was at her primary care provider today who ordered labs EKG which she said was a little abnormal and she had a normal chest x-ray elevated D-dimer potassium was little low. He told her to come to the emergency room to get a CT and be evaluated. He did not call the emergency department. She has had a productive cough of white sputum for the last week she has been short of breath she has difficulty with shortness of breath dyspnea on exertion when she is walking in the grocery store. She has had this before and had normal pulmonary function tests they never could figure out why she had this. She has had occasions where she gets up and she gets a little dizzy or lightheaded. But she says she has been eating and drinking fine no rash or itching lumps or bumps bleeding or bruising. She has history actually been short of breath since seeing the doctor on October 30. Related Data Home Medications Medication Instructions Recorded Confirmed citalopram 40 mg tablet 40 mg PO DAILY 08/21/21 12/10/22 levothyroxine 100 mcg tablet 100 mcg PO DAILY 08/21/21 12/10/22 (Synthroid) omeprazole 20 mg capsule,delayed 20 mg PO DAILY 08/21/21 12/10/22 release levothyroxine 88 mcg tablet 88 mcg PO DAILY 01/21/22 12/10/22 (Synthroid) irbesartan 150 1 tablet PO DAILY 12/10/22 12/10/22 mg-hydrochlorothiazide 12.5 mg tablet zolpidem 10 mg tablet (Ambien) 10 mg PO HS PRN Insomnia 12/10/22 12/10/22 Allergies Allergy/AdvReac Type Severity Reaction Status Date / Time No Known Allergies Allergy Mild Verified 12/13/22 19:49 [facility] Past Medical History Medical History Depression Endometriosis GERD (gastroesophageal reflux disease) Hypertension Hypothyroidism Pelvic pain Surgical History Surgical History History of thyroidectomy 1998 Steven Westfall Hx of section 2005 Steven Westfall Family History Family History Father CAD (coronary artery disease) Hypertension Diabetes mellitus Afib COPD (chronic obstructive pulmonary disease) Emphysema/COPD Social History Social History (Updated 10/24/22 @ 15:35 by JENNIFER Alonso) Social History: everyday caffeine use- drinks about 10 cups of tea per day Smoking status: Never smoker Second hand tobacco smoke exposure: No Alcohol intake: current Alcohol use details: once a year maybe Substance use: never Substance use type: does not use Living arrangements: with family Additional living arrangements comments: lives with Daughter 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 Very talkative and pleasant. Normocephalic atraumatic eyes conjunctiva pink sclera nonicteric.? Ears TMs are normal.? Oropharynx is clear with moist mucous membranes no exudates.? Neck is supple no lymphadenopathy nontender full range of motion.? Back is nontender.? Chest nontender.? Lungs are clear without wheezes rales or rhonchi With good air exchange.? Heart is regular rate rhythm without murmurs gallops or rubs.? Abdomen soft and nontender no hepatosplenomegaly or masses no CVA tenderness no abdominal bruits.? Extremities no cyanosis clubbing or edema.? Neurological she is alert and oriented x4 motor an
--- NOTE | 2022-12-13 19:46 | ECG_ITS ---
Measurements Intervals [place] Rate: 67 P: 31 MI: 138 QRS: -3 QRSD: 94 T: 18 QT: 430 QTc: 455 Interpretive Statements SINUS RHYTHM LEFT VENTRICULAR HYPERTROPHY MINIMAL Q WAVES- HIGH LATERAL LEADS BORDERLINE ECG COMPARED TO ECG 04/24/2022 20:31:17 NO SIGNIFICANT CHANGES Electronically Signed On 12-13-2022 21:21:24 CDT by Luiz De Luna D.O.
[2022-12-13 20:00] VITALS: PULSE 70; RESP 18; O2SAT 98
[2022-12-13 20:25] LABS: Troponin I 6.4 ng/L (0.00-60.4)
[2022-12-13 21:13] VITALS: PULSE 73; RESP 18; O2SAT 97
[2022-12-13 21:42] LABS: Influenza A QL RT-PCR Negative (Negative); Influenza B QL RT-PCR Negative (Negative); RSV RNA, RT-PCR Negative (Negative); SARS-CoV-2 RNA PCR Negative (Negative)
[2022-12-13 22:10] VITALS: BP 121/78; PULSE 65; RESP 20; O2SAT 99
== END 2022-12-13 22:29 | disposition home or self-care (01) ==
PROVIDERS: Emergency Provider Emergency Medicine; PCP Family Medicine
DX: J20.9 Acute bronchitis, unspecified (principal); I10 Essential (primary) hypertension; K21.9 Gastro-esophageal reflux disease without esophagitis; E89.0 Postprocedural hypothyroidism; F32.A Depression, unspecified; Z20.822 Contact with and (suspected) exposure to COVID-19
CPT/HCPCS: 36415; 71275; 84484; 87637; 93005; 99284; Q9967

== ENCOUNTER 2022-12-19 02:09 | Day surgery (SDC) | payer OTHER, SELFPAY ==
[2022-12-10 10:28] VITALS: BMI 44.0
--- NOTE | 2022-12-10 14:15 | PC.NURSE ---
Report to the Outpatient Waiting Room, entrance under the green pavilion located off [facility], at 0630 on 12-19-22. Planned Procedure Time: 0830. Time changes happen often and if your time is changed the preop area will call you the afternoon before. - You and your visitor will be asked to self-screen and do not enter if you have any COVID symptoms. - A mask is optional within the hospital at this time. Patients may have clear liquids (water, carbonated beverages, clear teas, apple juice) until 3 hours prior to surgery with a maximum of 20 ounces. 0530 - No food from midnight until time of surgery - Infants may have breast milk until 4 hours before surgery, formula 6 hours prior to surgery. - Children will be allowed to drink immediately following surgery. If applicable, please bring a bottle or sippy cup to assist with drinking. Juice, water, soda, and popsicles are readily available. For infants on formula, please bring formula the day of surgery. Pacifiers are allowed. Take the following medications with a SIP of water the morning of surgery: Synthroid, citalopram DO NOT STOP ANY OF YOUR OTHER PRESCRIPTION MEDICATIONS PRIOR TO SURGERY ?EXCEPT THE FOLLOWING Medications to discontinue per physician: N/A Please no make-up, nail setswana, hairspray, perfume, deodorant, or body powder the day of surgery. No jewelry (including any body piercings) or valuables the day of surgery, leave them at home. Please take a shower or bath the night before, or the morning of, surgery with an antibacterial soap. Wear comfortable, loose fitting clothing. Children are encouraged to wear pajamas. - Jewelry must be removed prior to entering the operating room. Rings and piercings that are not removed may be cut off. - The hospital will not accept responsibility for valuables. - Please leave all valuables, including medications, at home the day of surgery. If you are going home after surgery, a licensed commercial driver's license driver must drive you home. - NO public transportation without another adult if you receive anesthesia. - We recommend that an adult stay with you for 24 hours following discharge. - We also recommend that you do not drive, make important decision, drink alcoholic beverages, or take any drugs that were not prescribed by your health care provider for at least 24 hours after your discharge time. For Pediatric surgeries, we recommend two adults accompany the child home. Follow any additional instructions given to you from your surgeon. If you or anyone in your household have experienced Covid symptoms in the past week, please notify your surgeon or the nurse liaison at the phone number below for possible testing. Telephone instructions given to Magalie Queen and asked if any additional questions and then verbalized understanding. Patient advised to call surgeon office or pre surgery nurse liaison [phone] if any additional questions.
--- NOTE | 2022-12-18 15:45 | PM.IMHP ---
H&P: HPI History of Present Illness Date/Time: 12/18/22 15:45 52-year-old female 4 para 1031 presents with complaints of heavy vaginal bleeding. Initially began evaluation 9 months ago for this heavy bleeding ultrasound was performed which did show fibroid. At that time she was not menopausal and control pills were initiated. States that on the pills bleeding has not resolved and may have even worsened from where it had been previously. Ultrasound did show uterine fibroid as well as enlarged uterus. Multiple options were discussed and will proceed as per the assessment and plan. also she is interested in contraception in the form of bilateral salpingectomy, we have discussed nonpermanent measures and she does desire to proceed. Also does have a history of endometriosis and ovarian cysts and if these issues are encountered at her procedure they will be managed appropriately. Chief Complaint: 1. Menometrorrhagia 2. Desires sterilization Review of Systems Review of Systems: All systems reviewed & are unremarkable except as noted in HPI and below PMFSH Past Medical History Medical History Depression Endometriosis GERD (gastroesophageal reflux disease) Hypertension Hypothyroidism Pelvic pain Surgical History Surgical History History of thyroidectomy 1998 Steven Westfall Hx of section 2005 Steven Westfall Family History Family History Father CAD (coronary artery disease) Hypertension Diabetes mellitus Afib COPD (chronic obstructive pulmonary disease) Emphysema/COPD Social History Social History Social History: everyday caffeine use- drinks about 10 cups of tea per day Smoking status: Never smoker Second hand tobacco smoke exposure: No Alcohol intake: current Alcohol use details: once a year maybe Substance use: never Substance use type: does not use Living arrangements: with family Additional living arrangements comments: lives with Daughter Occupation/Education: occupation Additional occupation/education comments: Parts Runner Gender identity (if verbalized by the patient): Female Sexual Orientation (if Verbalized by the Patient): Straight or Heterosexual Spiritual care concerns: No Meds Home Medications and Allergies Home Medications Medication Instructions Recorded Confirmed Type citalopram 40 mg tablet 40 mg PO DAILY 08/21/21 12/10/22 History levothyroxine 100 mcg tablet 100 mcg PO DAILY 08/21/21 12/10/22 History (Synthroid) omeprazole 20 mg capsule,delayed 20 mg PO DAILY 08/21/21 12/10/22 History release levothyroxine 88 mcg tablet 88 mcg PO DAILY 01/21/22 12/10/22 History (Synthroid) norethindrone (contraceptive) 0.35 0.35 mg PO DAILY #84 tabs 05/29/22 12/10/22 Rx mg tablet irbesartan 150 1 tablet PO DAILY 12/10/22 12/10/22 History mg-hydrochlorothiazide 12.5 mg tablet zolpidem 10 mg tablet (Ambien) 10 mg PO HS PRN Insomnia 12/10/22 12/10/22 History albuterol sulfate 90 mcg/actuation 2 inh inhalation QID PRN shortness 12/13/22 Rx breath activated powder inhaler of breath or wheezing #1 ea Allergies Allergy/AdvReac Type Severity Reaction Status Date / Time No Known Allergies Allergy Mild Verified 12/13/22 19:49 Exam Const: General: cooperative, healthy appearing and comfortable Resp: Effort & Inspection: normal respiratory effort Auscultation: clear to auscultation bilaterally Cardio: Rate: regular rate Rhythm: regular rhythm GI: Inspection: normal to inspection Auscultation: normal bowel sounds : External Female Exam: normal external appearance Speculum Exam - Vagina: normal appearance of the vagina Speculum Exam - Cervix: normal appearance of the cervix Bimanual exam-
[2022-12-19] VITALS (8 sets, daily range): BP systolic 100–139; BP diastolic 63–78; PULSE 60–76; RESP 15–20; TEMP 36.2–36.6; O2SAT 98–100
[2022-12-19] MEDS: ACETAMINOPHEN 500 MG TABLET 1000 MG PO (07:15)
--- NOTE | 2022-12-19 07:22 | WPDHPUPDATE1 ---
History and Physical Update Update Date/Time: 12/19/22 07:22 History and Physical has been reviewed, including an updated exam of the patient. There are NO changes in the patient's condition. Risks, benefits, and alternatives have been discussed and questions answered. Patient agrees to proceed with procedure.
[2022-12-19] MEDS: LACTATED RINGERS 1,000 ML 30 ML IV CONT (07:27)
--- NOTE | 2022-12-19 07:43 | WPDANESEPPF ---
Anes - Initial Pre Proc Eval Procedure: Operation Date: 12/19/22 08:30 Proposed Procedures p Hysteroscopy, Dilation and Curettage, Mar Endometrial Ablation, - Juancho Arellano MD s Bilateral Laparoscopic Salpingectomy - Juancho Arellano MD Date/Time: 12/19/22 07:43 Surgeon: Juancho Arellano MD Pre Op Diagnosis: desires sterilization, abnormal uterine bleeding Patient Data Age: 52 Gender: F Height: 1.68 m Weight: 123.83 kg Allergies Allergy/AdvReac Type Severity Reaction Status Date / Time No Known Allergies Allergy Mild Verified 12/19/22 07:29 Home Medications Medication Instructions Recorded Confirmed Type citalopram 40 mg tablet 40 mg PO DAILY 08/21/21 12/10/22 History levothyroxine 100 mcg tablet 100 mcg PO DAILY 08/21/21 12/10/22 History (Synthroid) omeprazole 20 mg capsule,delayed 20 mg PO DAILY 08/21/21 12/10/22 History release levothyroxine 88 mcg tablet 88 mcg PO DAILY 01/21/22 12/10/22 History (Synthroid) norethindrone (contraceptive) 0.35 0.35 mg PO DAILY #84 tabs 05/29/22 12/10/22 Rx mg tablet irbesartan 150 1 tablet PO DAILY 12/10/22 12/10/22 History mg-hydrochlorothiazide 12.5 mg tablet zolpidem 10 mg tablet (Ambien) 10 mg PO HS PRN Insomnia 12/10/22 12/10/22 History albuterol sulfate 90 mcg/actuation 2 inh inhalation QID PRN shortness 12/13/22 Rx breath activated powder inhaler of breath or wheezing #1 ea Patient hx anesthesia problems: none Family hx anesthesia problems: none Results Review: All pre-operative results and documents have been reviewed as part of the pre-operative evaluation. [facility] Past Medical History Medical History (Updated 12/19/22 @ 07:44 by Milo Zaldivar MD) Depression Endometriosis GERD (gastroesophageal reflux disease) Hypertension Hypothyroidism Morbid obesity Pelvic pain Surgical History Surgical History History of thyroidectomy 1998 Steven Westfall Hx of section 2005 Steven Westfall Family History Family History Father CAD (coronary artery disease) Hypertension Diabetes mellitus Afib COPD (chronic obstructive pulmonary disease) Emphysema/COPD Social History Social History Social History: everyday caffeine use- drinks about 10 cups of tea per day Smoking status: Never smoker Second hand tobacco smoke exposure: No Alcohol intake: current Alcohol use details: once a year maybe Substance use: never Substance use type: does not use Living arrangements: with family Additional living arrangements comments: lives with Daughter Occupation/Education: occupation 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[employer] Gender identity (if verbalized by the patient): Female Sexual Orientation (if Verbalized by the Patient): Straight or Heterosexual Spiritual care concerns: No Anes - Eval Final PreProcedure Day of Procedure 12/19/22 07:43 Patient weight: morbidly obese Heart: regular rate and rhythm Lungs: clear to auscultation Airway: Mallampati scale class II Neurological: alert and oriented Last oral intake: >/= 8 hours ASA classification: III Emergent: no Anesthetic plan: proceed Anesthesia type and monitoring: general ETT and standard monitoring Results Review: All pre-operative results and documents have been reviewed as part of the pre-operative evaluation. Informed Consent: The patient's anesthetic plan and its attendant risks and benefits were discussed with the patient/family/POA. Questions were solicited and answers provided to the satisfaction of the patient/family/POA.
[2022-12-19] MEDS: KETOROLAC 15 MG/ML VIAL (*BKC) IV PUSH (07:53)
[2022-12-19] MEDS: ceFAZolin SODIUM 1 GM VIAL 3 GM IRRIGATION (09:21)
--- NOTE | 2022-12-19 09:52 | W.PM.PROC2 ---
Procedure Note - Detailed Date of Procedure 12/19/22 Pre-op Diagnosis 1. Menometrorrhagia 2. Dysmenorrhea 3. Pelvic pain 4. Undesired fertility Post-op Diagnosis Same Procedure Performed 1. Hysteroscopy with uterine curettings 2. Endometrial ablation 3. Laparoscopic bilateral salpingectomy Surgeon Juancho Arellano MD Anesthesia General Findings 1. Enlarged globular uterus small fibroid noted 2. Hysteroscopic exam without abnormality Description of Procedure Patient prepped draped usual manner for this procedure. Abdominal trocar sites were marked placed under direct visualization. Prior to this cervical instruments were placed for uterine mobility. Instruments were placed through these trocars with findings as noted above. Bilaterally the tubes were removed by cauterizing used the Harmonic scalpel the mesial salpinx bilaterally. Tube was removed without difficulty and there was no bleeding. Gas was allowed to escape incisions approximated using 4-0 Monocryl. Hysteroscope was then placed with no abnormalities noted. Curettings were obtained and endometrial ablation instrument was placed cavity and cavity assessment was performed. Instrument was activated and after the procedure thorough destruction of the entire cavity was noted. At this point the procedure was considered terminated, and the trocar sites were approximated using 4-0 Monocryl. Patient was then sent to recovery room in stable condition. Estimated Blood Loss 10 Drains No Packing No Pathology Yes Complications No immediate complications Condition Stable Disposition PACU [facility] Billing Surgery - Charge Forward: Surgery Billing
--- NOTE | 2022-12-19 10:19 | SUR.PHASEI ---
1019: Simple mask removed.
== END 2022-12-19 11:46 | disposition home or self-care (01) ==
PROVIDERS: PCP Family Medicine; Visit Provider Obstetrics & Gynecology
PROC: 0U5B8ZZ Destruction of Endometrium, Via Natural or Artificial Opening Endoscopic (ICD-10-PCS; CPT 58563; principal; 2022-12-19 08:30)
PROC: (CPT 49320; 2022-12-19 08:30)
DX: N92.1 Excessive and frequent menstruation with irregular cycle (principal); Z30.2 Encounter for sterilization; N94.6 Dysmenorrhea, unspecified; R10.2 Pelvic and perineal pain; I10 Essential (primary) hypertension; K21.9 Gastro-esophageal reflux disease without esophagitis; F32.A Depression, unspecified; E89.0 Postprocedural hypothyroidism; E66.01 Morbid (severe) obesity due to excess calories; Z68.42 Body mass index [BMI] 45.0-49.9, adult; Z79.51 Long term (current) use of inhaled steroids
CPT/HCPCS: 58563; 58661; 88302; 88305; A9270; J0690; J1100; J1885; J2250; J2405; J2704; J2710; J3010; J7120

== ENCOUNTER 2023-02-24 16:43 | Outpatient (CLI) | payer OTHER, SELFPAY ==
[2023-02-24 17:25] LABS: Basophils Percent Auto 0.2 % (0.2-1.2); Eosinophils Absolute Auto 0.3 K/mm3 (0-0.3); Eosinophils Percent Auto 2.3 % (0-4.4); Hematocrit 34.8 % (37.0-47.0); Hemoglobin 10.7 g/dL (12.0-15.0); Immature Granulocyte Absolute 0.05 K/mm3 (0.00-0.031); Immature Granulocyte Percent A 0.4 % (0-0.5); Lymphocytes Absolute Auto 3.34 K/mm3 (0.9-3.2); Lymphocytes Percent Auto 27.8 % (18.3-44.2); Mean Corpuscular HGB Conc 30.7 g/dl (32-36); Mean Corpuscular Hemoglobin 25.6 pg (26-34); Mean Corpuscular Volume 83.3 fl (80-100); Mean Platelet Volume 9.7 fl (7.4-10.4); Monocytes Absolute Auto 0.5 K/mm3 (0.1-0.6); Monocytes Percent Auto 4.5 % (2.6-8.5); Neutrophils Absolute Auto 7.8 K/mm3 (1.3-6.7); Neutrophils Percent Auto 64.8 % (45.5-73.1); Platelet Count Result 273 k/mm3 (150-375); Red Blood Count 4.18 M/mm3 (4.2-5.4)
[2023-02-24 17:48] LABS: Appearance Urine Cloudy (Clear); Bacteria Urine 2+ /hpf; Bilirubin Urine Negative (Negative); Blood Urine Negative (Negative); Color Urine Yellow (Yellow); Glucose Urine UA Negative (Negative); Ketones Urine Negative (Negative); Leukocyte Esterase Ur Negative LEU/UL (Negative); Nitrate Urine Negative (Negative); Non Pathogenic Casts 0-2; Protein Urine Negative (Negative); RBC Urine 0-2 /hpf (0-2); Specific Grav Ur 1.019 (1.001-1.035); Squamous Epithelial Cell Urine Moderate /hpf (Few); Urobilinogen Urine 0.2 mg/dL (<2.0); WBC Urine 0-5 /hpf
[2023-02-24 17:49] LABS: Add Urine Microscopic? YES
[2023-02-24 17:51] LABS: Erythrocyte Sedimentation Rate 21 mm/hr (0-20)
[2023-02-24 18:06] LABS: Amylase 107 U/L (30-110); CRP 0.7 mg/dL (<1.0); Lipase 58 U/L (23-300)
[2023-02-24 18:12] LABS: Free T4 Free Thyroxine 1.61 ng/mL (0.78-2.19)
[2023-02-24 18:34] LABS: Thyroid Stimulating Hormone 0.776 uIU/mL (0.465-4.680); Total Triiodothyronine (T3) 1.35 NG/ML (0.97-1.69)
[2023-02-28 00:28] LABS: Iron 29 ug/dL (37-170); Percent Iron Saturation 7 % (20-50)
[2023-02-28 00:47] LABS: Ferritin 9.01 ng/mL (11.1-264)
[2023-02-28 09:02] LABS: ANA Cascade Screen Negative (Negative)
== END 2023-02-24 16:44 | disposition home or self-care (01) ==
LOC: ANHLAB 16:50
PROVIDERS: PCP Family Medicine; Visit Provider Family Medicine
DX: E03.8 Other specified hypothyroidism (principal); R10.84 Generalized abdominal pain; R53.83 Other fatigue
CPT/HCPCS: 36415; 81001; 82150; 82728; 83540; 83550; 83690; 84436; 84439; 84443; 84480; 85025; 85652; 86038; 86140

== ENCOUNTER 2023-05-12 16:47 | Outpatient (CLI) | payer OTHER, SELFPAY ==
[2023-05-12 17:30] LABS: Strep Group A RT-PCR NOT DETECTED (Negative)
[2023-05-12 17:42] LABS: Influenza A QL RT-PCR Negative (Negative); Influenza B QL RT-PCR Negative (Negative); SARS-CoV-2 RNA PCR Negative (Negative)
== END 2023-05-12 16:48 | disposition home or self-care (01) ==
LOC: CHSLAB 16:49
PROVIDERS: PCP Family Medicine; Visit Provider Family Medicine
DX: J06.9 Acute upper respiratory infection, unspecified (principal)
CPT/HCPCS: 87636; 87651

== ENCOUNTER 2024-01-27 12:01 | Outpatient (CLI) | payer OTHER, SELFPAY ==
--- NOTE | ~2024-01-27 | MM_ITS ---
EXAMINATION: MM screening pavan BI w elvia HISTORY: Screening TECHNIQUE: Craniocaudal and mediolateral oblique 3-D tomosynthesis images were obtained and synthetic 2-D images were generated. CAD analysis was submitted and interpreted. COMPARISON: Comparison to multiple prior studies sequentially, with oldest reviewed study dated 10/25. BREAST PARENCHYMAL COMPOSITION: Not dense: There are scattered areas of fibroglandular density. FINDINGS: There is no evidence of suspicious mass, calcification, or architectural distortion to sugg est malignancy in either breast. There has been no suspicious interval change. IMPRESSION: 1. No mammographic evidence of malignancy. 2. Recommend routine screening mammography in one year. BI-RADS Category 1: Negative Reviewed, dictated and finalized at location B.
--- NOTE | ~2024-01-27 | XR_ITS ---
XR cervical spine 4-5V Ordering provider: Omari Foster MD History: . base of skull headache, RT neck pain/numbness, dizzy . Comparison: None. FINDINGS: VERTEBRAL BODIES: Normal height and alignment. No visible fracture or subluxation. The dens is intact . DISK SPACES: Narrowing of the disc C4-C5 and C5-C6 PARASPINOUS SOFT TISSUES: No prevertebral soft tissue swelling. IMPRESSION: No acute osseous abnormality cervical spine. Reviewed, dictated and finalized at location A.
--- NOTE | 2024-01-27 12:35 | ECG_ITS ---
Test Date: 2024-01-27 12:42:04 Measurements Intervals [place] Rate: 61 P: 51 NC: 144 QRS: 36 QRSD: 95 T: 44 QT: 429 QTc: 433 Interpretive Statements SINUS RHYTHM No previous ECG available for comparison Electronically Signed On 01-28-2024 14:22:21 CDT by Alondra Vigil M.D.
[2024-01-27 12:36] LABS: Basophils Absolute Auto 0.03 K/mm3 (0.00-0.10); Basophils Percent Auto 0.3 % (0.0-1.0); Eosinophils Absolute Auto 0.16 K/mm3 (0.02-0.50); Eosinophils Percent Auto 1.6 % (1.0-6.0); Hematocrit 35.4 % (35.0-49.0); Hemoglobin 11.2 g/dL (12.0-15.0); Immature Granulocyte Absolute 0.03 K/mm3 (0.00-0.00); Immature Granulocyte Percent A 0.3 % (0.0-0.0); Lymphocytes Absolute Auto 2.81 K/mm3 (1.10-4.50); Lymphocytes Percent Auto 27.7 % (18.0-42.0); Mean Corpuscular HGB Conc 31.6 g/dL (32-36); Mean Corpuscular Hemoglobin 26.1 pg (27.0-31.0); Mean Corpuscular Volume 82.5 fL (78.0-102.0); Mean Platelet Volume 9.8 fl (9.2-11.8); Monocytes Absolute Auto 0.41 K/mm3 (0.10-0.90); Neutrophils Percent Auto 66.1 % (50.0-70.0); Platelet Count Result 276 K/mm3 (150-420); Red Blood Count 4.29 M/mm3 (4.20-5.40); Red Cell Distribution Width 15.8 % (11.6-14.4); White Blood Count 10.1 K/mm3 (4.8-10.8)
[2024-01-27 13:02] LABS: Alanine Aminotransferase 18 U/L (14-59); Albumin Level 3.1 g/dL (3.4-5.0); Alkaline Phosphatase 73 U/L (46-116); Anion Gap 7 mmol/L (4-12); Aspartate Amino Transferase 14 U/L (15-37); Bilirubin,Total 0.3 mg/dL (0.00-1.00); Blood Urea Nitrogen 12 mg/dL (7-18); Calcium 8.5 mg/dL (8.5-10.1); Carbon Dioxide 29 mmol/L (21-32); Chloride 101 mmol/L (98-108); Creatine Kinase 79 U/L (26-192); Estimated Glomerular Filt Rate > 60; Free T3 2.58 pg/mL (2.18-3.98); Free T4 Free Thyroxine 1.19 ng/dL (0.76-1.46); Glucose 114 mg/dL (70-99); Osmolality Calculated 284 mOsm/kg (285-295); Potassium 3.9 mmol/L (3.5-5.1); Sodium 137 mmol/L (136-145); Thyroid Stimulating Hormone 0.75 uIU/mL (0.36-3.74); Total Protein 6.7 g/dL (6.4-8.2)
[2024-01-27 13:03] LABS: Creatine Kinase MB < 0.50 ng/mL (0.00-5.00)
[2024-01-27 13:04] LABS: Troponin I < 4.0 ng/L (0.00-60.4)
[2024-01-27 16:09] LABS: Iron 29 ug/dL (50-170); Percent Iron Saturation 7 % (12-57)
== END 2024-01-27 12:02 | disposition home or self-care (01) ==
PROVIDERS: PCP Family Medicine; Visit Provider Obstetrics & Gynecology
DX: R42 Dizziness and giddiness (principal); M54.2 Cervicalgia; Z12.31 Encounter for screening mammogram for malignant neoplasm of breast; E03.8 Other specified hypothyroidism; R07.9 Chest pain, unspecified
CPT/HCPCS: 36415; 72050; 77063; 77067; 80053; 82550; 82553; 83540; 83550; 84439; 84443; 84481; 84484; 85025; 93005

== ENCOUNTER 2024-01-29 13:08 | Outpatient (CLI) | payer OTHER, SELFPAY ==
--- NOTE | ~2024-01-29 | US_ITS ---
EXAMINATION: US carotid duplex BI DATE: 01/29/2024 13:43 INDICATION: Right arm numbness. Neck pain. Dizziness and giddiness. TECHNIQUE: Grayscale, color Doppler, and pulsed Doppler images of the cervical carotid arteries were obtained. The degree of vessel stenosis is placed in one of the following categories: normal, <50%, 5 0-69%, >=70% but less than near-occlusion, near-occlusion, or total occlusion. Note that percent sten osis relative to normal distal artery lumen diameter is indirectly measured from velocity measurement s as described by Samuel, et al. Radiology 2003; 229:340-346. COMPARISON: None. FINDINGS: RIGHT: The right common carotid artery (CCA) peak systolic velocity (PSV) is 124 cm/s. The right internal ca rotid artery (ICA) PSV is 111 cm/s. The right ICA end-diastolic velocity (EDV) is 37 cm/s. The right ICA/CCA PSV ratio is 0.9. Grayscale and color Doppler images yield an estimate of <50% diameter reduc tion from plaque in the ICA. There is antegrade flow in the right vertebral artery. LEFT: The left CCA PSV is 82 cm/s. The left ICA PSV is 102 cm/s. The left ICA EDV is 43 cm/s. The left ICA/ CCA PSV ratio is 1.2. Grayscale and color Doppler images yield an estimate of <50% diameter reduction from plaque in the ICA. There is antegrade flow in the left vertebral artery. IMPRESSION: 1. <50% stenosis in the right internal carotid artery. 2. <50% stenosis in the left internal carotid artery. Reviewed, dictated and finalized at location A.
== END 2024-01-29 13:09 | disposition home or self-care (01) ==
PROVIDERS: PCP Family Medicine; Visit Provider Family Medicine
DX: R42 Dizziness and giddiness (principal); M54.2 Cervicalgia; I65.23 Occlusion and stenosis of bilateral carotid arteries
CPT/HCPCS: 93880

== ENCOUNTER 2024-04-14 16:36 | Outpatient (CLI) | payer OTHER, SELFPAY ==
--- NOTE | ~2024-04-14 | XR_ITS ---
EXAMINATION: XR chest 2V DATE: 04/14/2024 16:56 INDICATION: Subacute cough. TECHNIQUE: Frontal and lateral views of the chest were obtained. COMPARISON: Chest 2 views 12/13/2022 FINDINGS: There is no pneumonia, pleural effusion, or pneumothorax. The heart size is normal. There i s a chronic compression fracture of T12. IMPRESSION: 1. No acute cardiopulmonary disease. Reviewed, dictated and finalized at location A.
[2024-04-14 17:26] LABS: Influenza A QL RT-PCR Negative (Negative); Influenza B QL RT-PCR Negative (Negative); SARS-CoV-2 RNA PCR Negative (Negative)
== END 2024-04-14 16:37 | disposition home or self-care (01) ==
LOC: CHSLAB 16:37
PROVIDERS: PCP Family Medicine; Visit Provider Family Medicine
DX: R05.2 Subacute cough (principal)
CPT/HCPCS: 71046; 87636

== ENCOUNTER 2024-04-23 16:07 | Outpatient (CLI) | payer OTHER, SELFPAY ==
[2024-04-23 16:35] LABS: Basophils Absolute Auto 0.04 K/mm3 (0.00-0.10); Basophils Percent Auto 0.4 % (0.0-1.0); Eosinophils Percent Auto 1.8 % (1.0-6.0); Hematocrit 33.5 % (35.0-49.0); Hemoglobin 10.5 g/dL (12.0-15.0); Immature Granulocyte Absolute 0.04 K/mm3 (0.00-0.00); Immature Granulocyte Percent A 0.4 % (0.0-0.0); Lymphocytes Absolute Auto 2.49 K/mm3 (1.10-4.50); Lymphocytes Percent Auto 21.9 % (18.0-42.0); Mean Corpuscular HGB Conc 31.3 g/dL (32-36); Mean Corpuscular Hemoglobin 25.2 pg (27.0-31.0); Mean Corpuscular Volume 80.3 fL (78.0-102.0); Mean Platelet Volume 9.4 fl (9.2-11.8); Monocytes Absolute Auto 0.45 K/mm3 (0.10-0.90); Neutrophils Absolute Auto 8.14 K/mm3 (1.70-7.20); Neutrophils Percent Auto 71.5 % (50.0-70.0); Platelet Count Result 249 K/mm3 (150-420); Red Blood Count 4.17 M/mm3 (4.20-5.40); Red Cell Distribution Width 15.2 % (11.6-14.4); White Blood Count 11.4 K/mm3 (4.8-10.8)
[2024-04-23 17:02] LABS: Strep Group A RT-PCR NOT DETECTED (Negative)
[2024-04-23 17:12] LABS: SARS-CoV-2 RNA PCR Negative (Negative)
[2024-04-23 17:13] LABS: Influenza A QL RT-PCR Negative (Negative); Influenza B QL RT-PCR Negative (Negative)
[2024-04-23 17:36] LABS: Alanine Aminotransferase 13 U/L (14-59); Albumin Level 3.3 g/dL (3.4-5.0); Anion Gap 7 mmol/L (4-12); Aspartate Amino Transferase 12 U/L (15-37); Bilirubin,Total 0.4 mg/dL (0.00-1.00); Blood Urea Nitrogen 21 mg/dL (7-18); Calcium 8.7 mg/dL (8.5-10.1); Carbon Dioxide 29 mmol/L (21-32); Chloride 103 mmol/L (98-108); Estimated Glomerular Filt Rate 50; Ferritin 11 ng/mL (8-252); Glucose 111 mg/dL (70-99); Osmolality Calculated 292 mOsm/kg (285-295); Potassium 4.2 mmol/L (3.5-5.1); Sodium 139 mmol/L (136-145); Thyroid Stimulating Hormone 1.98 uIU/mL (0.36-3.74); Total Protein 6.7 g/dL (6.4-8.2)
[2024-04-23 17:49] LABS: Alkaline Phosphatase 84 U/L (46-116); Iron 38 ug/dL (50-170); Percent Iron Saturation 9 % (12-57)
[2024-04-26 09:09] LABS: Hemoglobin A1C 5.9 % (<5.7)
[2024-04-26 14:23] LABS: Complement Total CH50 58 U/mL (31-60)
[2024-04-26 16:28] LABS: Immunoglobulin A 134 mg/dL (47-310); Immunoglobulin G 1006 mg/dL (600-1640); Immunoglobulin M 148 mg/dL (50-300)
== END 2024-04-23 16:08 | disposition home or self-care (01) ==
LOC: CHSLAB 16:09
PROVIDERS: PCP Family Medicine; Visit Provider Family Medicine
DX: R05.2 Subacute cough (principal); D84.9 Immunodeficiency, unspecified; I10 Essential (primary) hypertension; J02.9 Acute pharyngitis, unspecified; E03.8 Other specified hypothyroidism; R73.9 Hyperglycemia, unspecified
CPT/HCPCS: 36415; 80053; 82728; 82784; 83036; 83540; 83550; 84443; 85025; 86161; 86162; 87636; 87651; 87798

== ENCOUNTER 2024-06-08 09:25 | Outpatient (CLI) | payer OTHER, SELFPAY ==
[2024-06-08 09:42] LABS: Basophils Absolute Auto 0.04 K/mm3 (0.00-0.10); Basophils Percent Auto 0.4 % (0.0-1.0); Eosinophils Absolute Auto 0.38 K/mm3 (0.02-0.50); Eosinophils Percent Auto 3.7 % (1.0-6.0); Hematocrit 32.6 % (35.0-49.0); Hemoglobin 10.2 g/dL (12.0-15.0); Immature Granulocyte Absolute 0.04 K/mm3 (0.00-0.00); Immature Granulocyte Percent A 0.4 % (0.0-0.0); Lymphocytes Absolute Auto 2.31 K/mm3 (1.10-4.50); Lymphocytes Percent Auto 22.5 % (18.0-42.0); Mean Corpuscular HGB Conc 31.3 g/dL (32-36); Mean Corpuscular Hemoglobin 24.9 pg (27.0-31.0); Mean Corpuscular Volume 79.7 fL (78.0-102.0); Mean Platelet Volume 9.1 fl (9.2-11.8); Monocytes Absolute Auto 0.59 K/mm3 (0.10-0.90); Monocytes Percent Auto 5.8 % (2.0-11.0); Neutrophils Percent Auto 67.2 % (50.0-70.0); Platelet Count Result 240 K/mm3 (150-420); Red Blood Count 4.09 M/mm3 (4.20-5.40); Red Cell Distribution Width 16.6 % (11.6-14.4); White Blood Count 10.3 K/mm3 (4.8-10.8)
[2024-06-08 10:18] LABS: Alanine Aminotransferase 21 U/L (14-59); Alkaline Phosphatase 81 U/L (46-116); Anion Gap 11 mmol/L (4-12); Aspartate Amino Transferase 11 U/L (15-37); Bilirubin,Total 0.3 mg/dL (0.00-1.00); Blood Urea Nitrogen 16 mg/dL (7-18); Calcium 8.3 mg/dL (8.5-10.1); Carbon Dioxide 26 mmol/L (21-32); Chloride 104 mmol/L (98-108); Estimated Glomerular Filt Rate > 60; Glucose 105 mg/dL (70-99); Osmolality Calculated 293 mOsm/kg (285-295); Potassium 4.3 mmol/L (3.5-5.1); Sodium 141 mmol/L (136-145); Total Protein 6.4 g/dL (6.4-8.2)
[2024-06-09 09:18] LABS: Ferritin 10 ng/mL (8-252); Iron 29 ug/dL (50-170); Percent Iron Saturation 7 % (12-57)
== END 2024-06-08 09:26 | disposition home or self-care (01) ==
LOC: CHSLAB 09:27
PROVIDERS: PCP Family Medicine; Visit Provider Family Medicine
DX: J02.9 Acute pharyngitis, unspecified (principal); R53.83 Other fatigue; E61.1 Iron deficiency
CPT/HCPCS: 36415; 80053; 82728; 83540; 83550; 85025

== ENCOUNTER 2024-06-09 10:58 | Outpatient (CLI) | payer OTHER, SELFPAY ==
--- NOTE | ~2024-06-09 | XR_ITS ---
XR chest 2V Ordering provider: Omari Foster MD History: 53 years Female with . CHRONIC COUGH,SOB,X1MO, INTERITTENT CP . Comparison: April 14, 2024 FINDINGS: MEDIASTINUM: The cardiac silhouette is not enlarged. LUNGS: No infiltrates, effusions or pneumothorax. OTHER: No free air under the diaphragm. Degenerative changes of the spine. IMPRESSION: No acute cardiopulmonary pathology. Reviewed, dictated and finalized at location A.
== END 2024-06-09 10:59 | disposition home or self-care (01) ==
PROVIDERS: PCP Family Medicine; Visit Provider Family Medicine
DX: R05.3 Chronic cough (principal)
CPT/HCPCS: 71046; 94060; 94726; 94729

== ENCOUNTER 2024-06-29 10:42 | Outpatient (CLI) | payer OTHER, SELFPAY ==
[2024-06-29 10:55] LABS: Basophils Absolute Auto 0.03 K/mm3 (0.00-0.10); Basophils Percent Auto 0.4 % (0.0-1.0); Eosinophils Absolute Auto 0.23 K/mm3 (0.02-0.50); Eosinophils Percent Auto 2.9 % (1.0-6.0); Hematocrit 31.2 % (35.0-49.0); Hemoglobin 9.9 g/dL (12.0-15.0); Immature Granulocyte Absolute 0.04 K/mm3 (0.00-0.00); Immature Granulocyte Percent A 0.5 % (0.0-0.0); Lymphocytes Absolute Auto 2.31 K/mm3 (1.10-4.50); Lymphocytes Percent Auto 29.2 % (18.0-42.0); Mean Corpuscular HGB Conc 31.7 g/dL (32-36); Mean Corpuscular Volume 78.8 fL (78.0-102.0); Mean Platelet Volume 9.1 fl (9.2-11.8); Monocytes Absolute Auto 0.43 K/mm3 (0.10-0.90); Monocytes Percent Auto 5.4 % (2.0-11.0); Neutrophils Absolute Auto 4.87 K/mm3 (1.70-7.20); Neutrophils Percent Auto 61.6 % (50.0-70.0); Platelet Count Result 213 K/mm3 (150-420); Red Blood Count 3.96 M/mm3 (4.20-5.40); Red Cell Distribution Width 16.2 % (11.6-14.4); White Blood Count 7.9 K/mm3 (4.8-10.8)
[2024-06-29 11:33] LABS: Iron 18 ug/dL (50-170); Percent Iron Saturation 5 % (12-57)
[2024-06-30 08:12] LABS: Ferritin 10 ng/mL (8-252)
== END 2024-06-29 10:43 | disposition home or self-care (01) ==
LOC: CHSLAB 10:44
PROVIDERS: PCP Family Medicine; Visit Provider Family Medicine
DX: D64.9 Anemia, unspecified (principal)
CPT/HCPCS: 36415; 82728; 83540; 83550; 85025

== ENCOUNTER 2024-08-31 09:23 | Outpatient (CLI) | payer OTHER, SELFPAY ==
--- NOTE | ~2024-08-31 | XR_ITS ---
EXAMINATION: XR elbow LT min 3V DATE: 08/31/2024 10:06 INDICATION: Posterior and lateral left elbow pain. TECHNIQUE: Anteroposterior, two oblique and lateral views of the left elbow were obtained. COMPARISON: None. FINDINGS: Alignment is normal. No fracture or joint effusion. Joint spaces are normal. Soft tissues are unremar kable. Large olecranon spur. Small enthesophytes at the medial and lateral epicondylar origins of the common flexor and extensor tendon wads respectively. IMPRESSION: 1. Chronic enthesophytes at the olecranon and medial and lateral epicondyles. Reviewed, dictated and finalized at location A. 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
--- NOTE | ~2024-08-31 | MM_ITS ---
EXAMINATION: MM diagnostic pavan BI w elvia HISTORY: Wrist pain TECHNIQUE: Additional 3-D tomosynthesis images of the breasts were performed and synthetic 2-D images were generated. CAD analysis was submitted and interpreted. COMPARISON: None Comparison to multiple prior studies sequentially, with oldest reviewed study dated 10/25/2016. BREAST PARENCHYMAL COMPOSITION: Not Dense: The breasts are almost entirely fatty. FINDINGS: The breasts are stable. No new masses, calcifications or architectural distortion in either breast to suggest malignancy. IMPRESSION: 1. No evidence for malignancy in either breast. 2. Routine yearly screening mammogram and regular clinical breast examination are recommended. BI-RADS Category 1: Negative Reviewed, dictated and finalized at location A. TECHNICIAN IMPRESSION: 1. No evidence for malignancy in either breast. 2. Routine yearly screening mammogram and regular clinical breast examination a re recommended. BI-RADS Category 1: Negative
--- NOTE | ~2024-08-31 | XR_ITS ---
EXAMINATION: XR shoulder LT min 2V DATE: 08/31/2024 10:05 INDICATION: Left elbow pain radiating to the shoulder. TECHNIQUE: AP internally and externally rotated, AP oblique externally rotated and transscapular Y vi ews of the left shoulder were obtained. COMPARISON: Chest radiograph dated 06/09/2024 FINDINGS: Corticated ossicles about the widened left acromioclavicular joint which suggests sequela of prior di stal clavicle resection or sequela of old trauma. Bone alignment is otherwise normal. No acute fractu re.Mild glenohumeral osteoarthritis with marginal osteophytes about the posterior posterior inferior glenoid. Soft tissues are unremarkable. Visualized portions of the lungs are clear. IMPRESSION: 1. Mild left glenohumeral osteoarthritis. 2. Change at the distal left clavicle most likely related to prior distal left clavicle resections ve rsus less likely sequela of old trauma. Reviewed, dictated and finalized at location A. IST IMPRESSION: 1. Mild left glenohumeral osteoarthritis. 2. Change at the distal left clavicle most likely related to prior distal left clavicle resections versus less likely sequela of old trauma.
== END 2024-08-31 09:24 | disposition home or self-care (01) ==
PROVIDERS: PCP Family Medicine; Visit Provider Obstetrics & Gynecology
DX: M25.522 Pain in left elbow (principal); M79.602 Pain in left arm; Z12.31 Encounter for screening mammogram for malignant neoplasm of breast; M19.012 Primary osteoarthritis, left shoulder; M77.8 Other enthesopathies, not elsewhere classified
CPT/HCPCS: 73030; 73080; 77062; 77066; G0279

== ENCOUNTER 2024-09-22 09:12 | Outpatient (CLI) | payer OTHER, SELFPAY ==
--- NOTE | ~2024-09-22 | XR_ITS ---
EXAMINATION: XR elbow RT min 3V DATE: 09/22/2024 09:46 INDICATION: Right elbow pain. TECHNIQUE: 4 views of right elbow were obtained. COMPARISON: None. FINDINGS: Alignment is normal. No fracture. There is mild elbow joint osteoarthritis characterized by tiny osteophytes. No elbow joint effusion. There are enthesophytes at medial and lateral humeral epi condyles and at olecranon. There is soft tissue swelling overlying olecranon, consistent with bursiti s. IMPRESSION: 1. Olecranon bursitis. 2. Mild elbow joint osteoarthritis. Reviewed, dictated and finalized at location A. STRIPPER
[2024-09-22 09:33] LABS: Basophils Absolute Auto 0.03 K/mm3 (0.00-0.10); Basophils Percent Auto 0.3 % (0.0-1.0); Eosinophils Absolute Auto 0.09 K/mm3 (0.02-0.50); Hematocrit 34.9 % (35.0-49.0); Hemoglobin 10.7 g/dL (12.0-15.0); Immature Granulocyte Absolute 0.02 K/mm3 (0.00-0.00); Immature Granulocyte Percent A 0.2 % (0.0-0.0); Lymphocytes Absolute Auto 2.93 K/mm3 (1.10-4.50); Lymphocytes Percent Auto 33.9 % (18.0-42.0); Mean Corpuscular HGB Conc 30.7 g/dL (32-36); Mean Corpuscular Hemoglobin 24.2 pg (27.0-31.0); Mean Platelet Volume 9.2 fl (9.2-11.8); Monocytes Absolute Auto 0.45 K/mm3 (0.10-0.90); Monocytes Percent Auto 5.2 % (2.0-11.0); Neutrophils Absolute Auto 5.12 K/mm3 (1.70-7.20); Neutrophils Percent Auto 59.4 % (50.0-70.0); Platelet Count Result 266 K/mm3 (150-420); Red Blood Count 4.42 M/mm3 (4.20-5.40); Red Cell Distribution Width 15.8 % (11.6-14.4); White Blood Count 8.6 K/mm3 (4.8-10.8)
--- OUTSIDE RECORDS SUMMARY | 2024-09-22 09:53 | XMS_ITS | Referral Summary ---
Author Organization [facility] Building [facility] Address [address] [place] [address] Care Team Providers Care Barrel Dedenting Machine Operator Name Role Phone Omari Foster MD Primary Care Provide r Encounters Date Type Department Care Team Description 09/08/[address] [address] Aida Spaulding 07/20/2024 12:15 PM VEGETABLE HARVEST MACHINE OPERATOR Lab [address] [address] Shortness of breath 07/20/2024 12:45 PM VEGETABLE HARVEST MACHINE OPERATOR Office Visit [place] [facility] Specialist at [facility] [address] [place] [address] Kira Harris MD Chest pain, unspecified type (Primary Dx); Palpitations 07/20/2024 11:00 AM VEGETABLE HARVEST MACHINE OPERATOR Office Visit [facility] Pulmonary at [address] [place] [address] Colby Tovar DO Shortness of breath (Primary Dx); Abnormal PFT 07/19/[address] [address] Emiliano Kamila Sadiq from Last 3 Months Allergies No known active allergies Medications levothyroxine (SYNTHROID) 100 mcg tablet Take 1 tablet (100 mcg total) by mouth media account executive before breakfast Active levothyroxine (SYNTHROID) 88 mcg tablet Take 1 tablet (88 mcg total) by mouth media account executive before breakfast Active irbesartan-hydr ochlorothiazide (AVALIDE) 150-12.5 mg per tablet Take 1 tablet by mouth daily Active citalopram (CeleXA) 40 mg tablet Take 1 tablet (40 mg total) by mouth daily Active omeprazole (PriLOSEC) 40 mg capsuleIndicati ons:Laryngeal spasm Take 1 capsule (40 mg total) by mouth daily 30 capsule 11 4 06/07/20 25 Active famotidine (PEPCID) 40 mg tabletIndicatio ns:Laryngeal spasm Take 1 tablet (40 mg total) by mouth nightly 90 tablet 3 4 06/02/20 25 Active ALPRAZolam (XANAX) 0.5 mg tablet nightly as needed 4 Active zolpidem (AMBIEN) 10 mg tablet 1 tablet (10 mg total) nightly as needed 4 Active valACYclovir (VALTREX) 1 gram tablet as needed 4 Active loratadine (CLARITIN) 10 mg tablet 4 Active Active Problems Problem Noted Date Diagnosed Date Seasonal allergic rhinitis due to pollen 024 Assessment & Plan (06/07/2024 3:23 PM CDT): Take Thyroid medication first thing in the morning 60 minutes prior to any other medications, food or fluid Take Omeprazole (Prilosec) 40 mg 30-60 minutes prior to any other medication, food or fluids other than water Start Famotidine at bedtime Blood allergy testing CT Neck soft tissue to rule out submandibular gland stones Cross-reactivity discussed and Handout provided Acute recurrent sialoadenitis 06/07/2024 Assessment & Plan (06/07/2024 3:23 PM CDT): Take Thyroid medication first thing in the morning 60 minutes prior to any other medications, food or fluid Take Omeprazole (Prilosec) 40 mg 30-60 minutes prior to any other medication, food or fluids other than water Start Famotidine at bedtime Blood allergy testing CT Neck soft tissue to rule out submandibular gland stones Laryngeal spasm 06/07/2024 Assessment & Plan (06/07/2024 3:22 PM CDT): Take Thyroid medication first thing in the morning 60 minutes prior to any other medications, food or fluid Take Omeprazole (Prilosec) 40 mg 30-60 minutes prior to any other medication, food or fluids other than water Start Famotidine at bedtime Blood allergy testing CT Neck soft tissue to rule out submandibular gland stones Laryngopharyngeal reflux discussed and Handout provided Personal history of colonic polyps 09/04/2023 Encounter for screening colonoscopy 09/04/2023 Hematochezia 09/04/2023 Melena 09/04/2023 Family history of colon cancer 09/04/2023 Abdominal pain 09/04/2023 Diarrhea 09/04/2023 Migraine without aura and responsive to treatmen t 02/22/2014 Overview (11/15/2016): COMN MIGRNE WO [facility] MGRN Hypothyroidism 12/25/2013 Overview (11/14/2016): HYPOTHYROIDISM NOS Generalized anxiety disorder 12/25/2013 Overview (11/15/2016): GENERALIZED ANXIETY DIS Persistent insomnia 12/25/2013 Overview (11/15/2016): PERSISTENT INSOMNIA Social History Tobacco Use Types Packs/Day Years Used Date Smoking Tobacco: Never Passive Smoke Exposure: Never Smokeless Tobacco: Never Tobacco Cessation:Counseling Given: Not Answered Alcohol Use Standard Drinks/Week Comments Yes 0 (1 standard drink = 0.6 oz pur e alcohol) Comments Unknown Sex and Gender Information Value Date Recorded Sex Assigned at Not on file Legal Sex Female 11:57 PM VEGETABLE HARVEST MACHINE OPERATOR Gender Identity Not on file Sexual Orientation Not on file Last Filed Vital Signs Vital Sign Reading Time Taken Comments Blood Pressure 139/71 07/20/2024 12:54 PM VEGETABLE HARVEST MACHINE OPERATOR Pulse 70 07/20/2024 12:54 PM VEGETABLE HARVEST MACHINE OPERATOR Temperature 36.6 C (97.9 F) 07/20/2024 11:21 AM VEGETABLE HARVEST MACHINE OPERATOR Respiratory Rate 18 06/07/2024 2:45 PM CDT Oxygen Saturation 97% 07/20/2024 11:21 AM VEGETABLE HARVEST MACHINE OPERATOR Inhaled Oxygen Concentration - - Weight 131.5 kg (290 lb) 07/20/2024 12:54 PM VEGETABLE HARVEST MACHINE OPERATOR Height 167.6 cm (5' 6 ) 07/20/2024 12:54 PM VEGETABLE HARVEST MACHINE OPERATOR Body Mass Index 46.81 07/20/2024 12:54 PM VEGETABLE HARVEST MACHINE OPERATOR Plan of Treatment Not on file Procedures Procedure Name Priority Date/Time Associated Diagnosis Comments PRO B-TYPE NATRIURETIC PEPTIDE Routine 07/20/2024 12:25 PM VEGETABLE HARVEST MACHINE OPERATOR Shortness of breath from Last 3 Months Results * Pro B-type natriuretic peptide (07/20/2024 12:25 PM VEGETABLE HARVEST MACHINE OPERATOR) NT-proBNP 49 <=300 pg/mL Comment: Interpretive Comments: A. Dyspnea in Acute Care Setting All Ages: < 300 pg/ml, acute heart failure unlikely. < 50 yrs: 300 - 450 pg/ml, further investigation warranted. > 450 pg/ml, acute heart failure likely. 50 - 74 yrs: 300 - 900 pg/ml, further investigation warranted. > 900 pg/ml, acute heart failure likely . > or = 75 yrs: 450 - 1800 pg/ml, further investigation warranted. > 1800 pg/ml, acute heart failure likely. B. Non-acute Setting < 75 yrs < 125 pg/ml, rules out heart failure. > or = 125 pg/ml, further investigation warranted. > or = 75 yrs < 450 pg/ml, rules out heart failure. > or = 450 pg/ml, further investigation warranted. - Knowledge of each individual patient's NT-proBNP range may be more useful than using similar cut-points for every patient. Please note that marked elevations in NT-proBNP levels may be observed in state other than Left Ventricular Congestive Failure, including: acute coronary syndromes, right heart strain/failure (including pulmonary embolism and cor pulmonale), critical illness, renal failure, as well as advanced age. - References: 1. Jeanmarie VAZQUEZ et.al. Eur Heart J. 2006:27:330-337. 2. Aidan RW, Marika AM. J. AM Jorge Cardiol: Cardiovasc Imag. 2009;2: 216- 225. Interpretive Data Last Revised Date: 2018. Blood 07/20/2024 12:2 5 PM VEGETABLE HARVEST MACHINE OPERATOR 07/20/2024 12:37 PM VEGETABLE HARVEST MACHINE OPERATOR Colby Tovar DO LAB BLOOD ORDERABLES Odessa humphrey Result [facility] [address] Department [place] [address] from Last 3 Months Insurance [facility] Care Teams Barrel Dedenting Machine Operator Relationship Specialty Start Date End Date Omari Foster MD [address] [place] [address] PCP - General 02/16/19
--- OUTSIDE RECORDS SUMMARY | 2024-09-22 09:54 | XMS_ITS | Encounter Summary ---
Author Organization [facility] Address [address] [place] [address] Care Team Providers Care Transformer Tester Name Role Phone Omari Foster MD Primary Care Provide r Reason for Visit * Auth/Cert (Routine) Specialty Diagnoses / Procedures Referred By Contac t Referred To Contact Diagnoses Personal history of colonic polyps Encounter for screening colonoscopy Hematochezia Melena Family history of colon cancer Abdominal pain Diarrhea, unspecified type Personal history of colonic polyps [Z86.010] Encounter for screening colonoscopy [Z12.11] Hematochezia [K92.1] Melena [K92.1] Family history of colon cancer [Z80.0] Abdominal pain [R10.9] Diarrhea, unspecified type [R19.7] Procedures CO COLONOSCOPY FLX DX W/COLLJ SPEC WHEN PFRMD COLONOSCOPY Referral ID Status Reason Start Date Expiration Date Visits Re quested Visits Authorized [id number] 1 1 Encounter Details Date Type Department Care Team (Late st Contact Info) Description 03/09/2024 Hospital Encounter [facility] [address] [place] [address] Reid Alfaro MD [address] [place] [address] Social History Tobacco Use Types Packs/Day Years Used Date Smoking Tobacco: Never Passive Smoke Exposure: Never Smokeless Tobacco: Never Alcohol Use Standard Drinks/Week Comments Yes 0 (1 standard drink = 0.6 oz pur e alcohol) Comments Unknown Sex and Gender Information Value Date Recorded Sex Assigned at Not on file Legal Sex Female 11:57 PM BOTTLE INSPECTOR Gender Identity Not on file Sexual Orientation Not on file documented as of this encounter Plan of Treatment Not on file documented as of this encounter Visit Diagnoses Diagnosis Personal history of colonic polyps Encounter for screening colonoscopy Hematochezia Blood in stool Melena Blood in stool Family history of colon cancer Family history of malignant neoplasm of gastrointestinal tract Abdominal pain Abdominal pain, unspecified site Diarrhea documented in this encounter Admitting Diagnoses Diagnosis Personal history of colonic polyps Encounter for screening colonoscopy Hematochezia Blood in stool Melena Blood in stool Family history of colon cancer Family history of malignant neoplasm of gastrointestinal tract Abdominal pain Abdominal pain, unspecified site Diarrhea documented in this encounter Care Teams Transformer Tester Relationship Specialty Start Date End Date Omari Foster MD [address] [place] [address] PCP - General 02/16/19 documented as of this encounter
--- OUTSIDE RECORDS SUMMARY | 2024-09-22 09:54 | XMS_ITS | Clinical Summary ---
Author Organization [facility] Address [address] [place] [address] Care Team Providers Care Harvest Manager Name Role Phone Unavailable Primary Care Provider Unavailabl e Social History Tobacco Use Types Packs/Day Years Used Date Smoking Tobacco: Never Assessed Comments Unknown Sex and Gender Information Value Date Recorded Sex Assigned at Not on file Legal Sex Female 8:31 PM CDT Gender Identity Not on file Sexual Orientation Not on file Plan of Treatment Health Maintenance Due Date Last Done Comments Cervical Cancer Screening Pa p Smear (Age 30 to 64) Every 3 Years 1969 Colorectal Cancer Screening Colonoscopy (10 Years) 1969 Annual Physical 1972 Hepatitis C 1987 DTaP, Tdap and Td Vaccines ( 1 - Tdap) 1988 Hepatitis B Vaccines (1 of 3 - 19+ 3-dose series) 1988 Cervical Cancer Screening Pa p with HPV Testing (Age 30 to 64) Every 5 Years 1999 Cervical Cancer Screening with HPV 1999 Mammogram Screening 2009 Zoster Vaccines (1 of 2) 2019 COVID-19 Vaccine (2023-2 5 season) 2024 Influenza Adult (#1) 2024 Meningococcal B Vaccine Aged Out No l onger eligible based on patient's age to complete this topic Meningococcal Vaccine Aged Out No mike cheo eligible based on patient's age to complete this topic Pneumococcal Vaccine: Pediat rics (0 to 5 Years) and At-Risk Patients (6 to 64 Years) Aged Out No longer eligible b ased on patient's age to complete this topic RSV Immunizations Under 20 Months Aged Out No longer eligible based on patient's age to complete this topic
--- OUTSIDE RECORDS SUMMARY | 2024-09-22 09:54 | XMS_ITS | Clinical Summary ---
Author Organization [facility] Building [facility] Address [address] [place] [address] Care Team Providers Care Tooth Cutter Name Role Phone Omari Foster MD Primary Care Provide r Allergies No known active allergies Medications levothyroxine (SYNTHROID) 100 mcg tablet Take 1 tablet (100 mcg total) by mouth strategy execution consultant before breakfast Active levothyroxine (SYNTHROID) 88 mcg tablet Take 1 tablet (88 mcg total) by mouth strategy execution consultant before breakfast Active irbesartan-hydr ochlorothiazide (AVALIDE) 150-12.5 [...] t 02/22/2014 Overview (11/15/2016): COMN M[facility]RNE WO [facility] M[facility] Hypothyroidism 12/25/2013 Overview (11/14/2016): HYPOTHYROIDISM NOS Generalized anxiety disorder 12/25/2013 Overview (11/15/2016): GENERALIZED ANXIETY DIS Persistent insomnia 12/25/2013 Overview (11/15/2016): PERSISTENT INSOMNIA Encounters Date Type Department Care Team Description 09/08/[address] [address] Jasson Aida R. 07/20/2024 12:45 PM DIVISION COMMANDER Office Visit [place] [employer] Intern at [facility] [address] [facility] [address] [place] [address] Kira Harris MD Chest pain, unspecified type (Primary Dx); Palpitations 07/20/2024 12:15 PM DIVISION COMMANDER Lab [address] [address] Shortness of breath 07/20/2024 11:00 AM DIVISION COMMANDER Office Visit [facility] Pulmonary at [address] [place] [address] Colby Tovar DO Shortness of breath (Primary Dx); Abnormal PFT 07/19/[address] [address] Emiliano Kamila Sadiq from Last 3 Months Surgical History Surgery Date Site/Laterality Comments OTHER SURGICAL HISTORY : OTHER SURGICAL HISTORY thyroid tumor: Thyroidectomy Medical History Medical History Date Comments Hx Other Medical Hx Other Medical thyroid tumor Disorder of thyroid Thyroid dise ase Hypertension Family History Medical History Relation Name Comments Atrial fibrillation Father COPD Father Diabetes type II Father Diabetes -T ype II; Hypertension Father Hypertension; Relation Name Status Comments Father Alive Social History Tobacco Use Types Packs/Day Years Used Date Smoking Tobacco: Never Passive Smoke Exposure: Never Smokeless Tobacco: Never Tobacco Cessation:Counseling Given: Not Answered Alcohol Use Standard Drinks/Week Comments Yes 0 (1 standard drink = 0.6 oz pur e alcohol) Comments Unknown Sex and Gender Information Value Date Recorded Sex Assigned at Not on file Legal Sex Female 11:57 PM DIVISION COMMANDER Gender Identity Not on file Sexual Orientation Not on file Obstetrics History Last Filed Vital Signs Vital Sign Reading Time Taken Comments Blood Pressure 139/71 07/20/2024 12:54 PM DIVISION COMMANDER Pulse 70 07/20/2024 12:54 PM DIVISION COMMANDER Temperature 36.6 C (97.9 F) 07/20/2024 11:21 AM DIVISION COMMANDER Respiratory Rate 18 06/07/2024 2:45 PM CDT Oxygen Saturation 97% 07/20/2024 11:21 AM DIVISION COMMANDER Inhaled Oxygen Concentration - - Weight 131.5 kg (290 lb) 07/20/2024 12:54 PM DIVISION COMMANDER Height 167.6 cm (5' 6 ) 07/20/2024 12:54 PM DIVISION COMMANDER Body Mass Index 46.81 07/20/2024 12:54 PM DIVISION COMMANDER Plan of Treatment Health Maintenance Due Date Last Done Comments Breast Cancer Screening-Mammogram 1969 Cervical Cancer Screening 1969 Colon Cancer Screening-Colonoscopy 1969 Depression Screening 1969 Hepatitis C Screening 1969 DTaP/Tdap/Td Vaccine (1 - Tdap) 1980 Hepatitis B Screening 1987 Regular Well Visit/Exam 18-64 1987 Zoster Vaccine (1 of 2) 2019 Covid-19 Vaccine (3 - 2023-2 5 season) 2024 01/21/2022, 11/26/2021 Influenza Vaccine (#1) 2024 Pneumococcal vaccine <65 Aged Out No longer eligible based on patient's age to complete this topic Procedures Procedure Name Priority Date/Time Associated Diagnosis Comments PRO B-TYPE NATRIURETIC PEPTIDE Routine 07/20/2024 12:25 PM DIVISION COMMANDER Shortness of breath from Last 3 Months Results * Pro B-type natriuretic peptide (07/20/2024 12:25 PM DIVISION COMMANDER) NT-proBNP 49 <=300 pg/mL Comment: Interpretive Comments: [...] Date: 2018. Blood 07/20/2024 12:2 5 PM DIVISION COMMANDER 07/20/2024 12:37 PM DIVISION COMMANDER Colby Tovar DO LAB BLOOD ORDERABLES Odessa humphrey Result [facility] [place] [address] [facility] [place] [address] from Last 3 Months Insurance Care Teams Tooth Cutter Relationship Specialty Start Date End Date Omari Foster MD [address] [place] [address] PCP - General 02/16/19
[2024-09-22 10:20] LABS: Anion Gap 11 mmol/L (4-12); Blood Urea Nitrogen 17 mg/dL (7-18); CRP 0.8 mg/dL (0.0-0.9); Calcium 8.5 mg/dL (8.5-10.1); Carbon Dioxide 27 mmol/L (21-32); Chloride 101 mmol/L (98-108); Estimated Glomerular Filt Rate 53; Glucose 101 mg/dL (70-99); Osmolality Calculated 289 mOsm/kg (285-295); Potassium 4.3 mmol/L (3.5-5.1); Sodium 139 mmol/L (136-145); Uric Acid 6.6 mg/dL (2.6-6.0)
[2024-09-22 10:37] LABS: Erythrocyte Sedimentation Rate 24 mm/hr (0-20)
== END 2024-09-22 09:13 | disposition home or self-care (01) ==
LOC: CHSLAB 09:17
PROVIDERS: PCP Family Medicine; Visit Provider Family Medicine
DX: M25.521 Pain in right elbow (principal); M71.521 Other bursitis, not elsewhere classified, right elbow; M19.021 Primary osteoarthritis, right elbow
CPT/HCPCS: 36415; 73080; 80048; 84550; 85025; 85652; 86140

== ENCOUNTER 2024-12-27 15:57 | Outpatient (CLI) | payer OTHER, SELFPAY ==
--- NOTE | ~2024-12-27 | XR_ITS ---
EXAM: XR shoulder RT min 2V DATE: 12/27/2024 16:30 HISTORY: pain in right shoulder, nki . COMPARISON: None available. FINDINGS: Normal mineralization. No fracture or dislocation. No lytic or blastic lesion. Moderate de generative change at the AC joint. Acromial tip enthesopathy noted superiorly. No erosion or perioste al change. Soft tissues within normal limits. IMPRESSION: Moderate AC joint osteoarthritis. Reviewed, dictated and finalized at location K.
--- OUTSIDE RECORDS SUMMARY | 2024-12-27 16:00 | XMS_ITS | Encounter Summary ---
Author Organization [facility] Address [address] [place] [address] Care Team Providers Care Corn Cutter Operator Name Role Phone Omari Foster MD [...] pain [R10.9] Diarrhea, unspecified type [R19.7] Procedures [place] COLONOSCOPY FLX DX W/COLLJ SPEC WHEN PFRMD COLONOSCOPY Referral ID Status Reason Start Date Expiration Date Visits Re quested Visits Authorized [id number] 1 1 Encounter Details Date Type Department Care Team (Late Contact Info) Description 03/09/2024 Hospital Encounter [facility] [address] [place] [address] Reid Alfaro MD [address] [place] [address] Social History Tobacco Use Types Packs/Day Years Used Date Smoking Tobacco: Never Passive Smoke Exposure: Never Smokeless Tobacco: Never Alcohol Use Standard Drinks/Week Comments Yes 0 (1 standard drink = 0.6 oz pur e alcohol) Comments Unknown Sex and Gender Information Value Date Recorded Sex Assigned at Not on file Legal Sex Female 11:57 PM COMMERCIAL CREDIT REVIEWER Gender Identity Not on file Sexual Orientation [...] Diarrhea documented in this encounter Care Teams Corn Cutter Operator Relationship Specialty Start Date End Date Omari Foster MD [address] [place] [address] PCP - General 02/16/19 documented as of this encounter
--- OUTSIDE RECORDS SUMMARY | 2024-12-27 16:00 | XMS_ITS | Referral Summary ---
Author Organization [facility] Medical Office Building B Address [address] [place] [address] Care Team Providers Care Celery Packer Name Role Phone Omari Foster MD Primary Care Provide r Allergies No known active allergies Medications levothyroxine (SYNTHROID) 100 mcg tablet Take 1 tablet (100 mcg total) by mouth box toe buffer before breakfast Active levothyroxine (SYNTHROID) 88 mcg tablet Take 1 tablet (88 mcg total) by mouth box toe buffer before breakfast Active irbesartan-hydr ochlorothiazide (AVALIDE) 150-12.5 [...] t 02/22/2014 Overview (11/15/2016): COMN M[facility]RNE WO [facility] MGRN Hypothyroidism 12/25/2013 Overview (11/14/2016): HYPOTHYROIDISM NOS [...] on file Legal Sex Female 11:57 PM MASONRY INSTALLER Gender Identity Not on file Sexual Orientation Not on file Last Filed Vital Signs Vital Sign Reading Time Taken Comments Blood Pressure 139/71 07/20/2024 12:54 PM MASONRY INSTALLER Pulse 70 07/20/2024 12:54 PM MASONRY INSTALLER Temperature 36.6 C (97.9 F) 07/20/2024 11:21 AM MASONRY INSTALLER Respiratory Rate 18 06/07/2024 2:45 PM CDT Oxygen Saturation 97% 07/20/2024 11:21 AM MASONRY INSTALLER Inhaled Oxygen Concentration - - Weight 131.5 kg (290 lb) 07/20/2024 12:54 PM MASONRY INSTALLER Height 167.6 cm (5' 6 ) 07/20/2024 12:54 PM MASONRY INSTALLER Body Mass Index 46.81 07/20/2024 12:54 PM MASONRY INSTALLER Plan of Treatment Not on file Insurance [facility] Care Teams Celery Packer Relationship Specialty Start Date End Date Omari Foster MD [address] [place] [address] PCP - General 02/16/19
--- OUTSIDE RECORDS SUMMARY | 2024-12-27 16:00 | XMS_ITS | Clinical Summary ---
Author Organization [facility] Building [facility] Address [address] [place] [address] Care Team Providers Care Unemployment Benefits Claims Taker Name Role Phone Omari Foster MD Primary Care Provide r Allergies No known active allergies Medications levothyroxine (SYNTHROID) 100 mcg tablet Take 1 tablet (100 mcg total) by mouth media theorist and author of before breakfast Active levothyroxine (SYNTHROID) 88 mcg tablet Take 1 tablet (88 mcg total) by mouth media theorist and author of before breakfast Active irbesartan-hydr ochlorothiazide (AVALIDE) 150-12.5 [...] t 02/22/2014 Overview (11/15/2016): COMN MIGRNE WO [facility] MGRN Hypothyroidism 12/25/2013 Overview (11/14/2016): HYPOTHYROIDISM NOS Generalized anxiety disorder 12/25/2013 Overview (11/15/2016): GENERALIZED ANXIETY DIS Persistent insomnia 12/25/2013 Overview (11/15/2016): PERSISTENT INSOMNIA Surgical History Surgery Date Site/Laterality Comments OTHER [...] on file Legal Sex Female 11:57 PM LEAD PASTOR Gender Identity Not on file Sexual Orientation Not on file Obstetrics History Last Filed Vital Signs Vital Sign Reading Time Taken Comments Blood Pressure 139/71 07/20/2024 12:54 PM LEAD PASTOR Pulse 70 07/20/2024 12:54 PM LEAD PASTOR Temperature 36.6 C (97.9 F) 07/20/2024 11:21 AM LEAD PASTOR Respiratory Rate 18 06/07/2024 2:45 PM CDT Oxygen Saturation 97% 07/20/2024 11:21 AM LEAD PASTOR Inhaled Oxygen Concentration - - Weight 131.5 kg (290 lb) 07/20/2024 12:54 PM LEAD PASTOR Height 167.6 cm (5' 6 ) 07/20/2024 12:54 PM LEAD PASTOR Body Mass Index 46.81 07/20/2024 12:54 PM LEAD PASTOR Plan of Treatment Health Maintenance Due Date Last Done Comments Breast Cancer Screening-Mammogram 1969 Cervical Cancer Screening 1969 Colon Cancer Screening-Colonoscopy 1969 Depression Screening 1969 Hepatitis C Screening 1969 DTaP/Tdap/Td Vaccine (1 - Tdap) 1980 Hepatitis B Screening 1987 Regular Well Visit/Exam 18-64 1987 Zoster Vaccine (1 of 2) 2019 Covid-19 Vaccine (2023-2 5 season) 2024 01/21/2022, 11/26/2021 Influenza Vaccine (Season Ended) 2025 Pneumococcal vaccine <65 Aged Out No longer eligible based on patient's age to complete this topic Insurance [facility] Care Teams Unemployment Benefits Claims Taker Relationship Specialty Start Date End Date Omari Foster MD [address] [place] [address] PCP - General 02/16/19
--- OUTSIDE RECORDS SUMMARY | 2024-12-27 16:00 | XMS_ITS | Clinical Summary ---
Author Organization [facility] Address [address] [place] [address] Care Team Providers Care Java Designer Name Role Phone Unavailable Primary Care Provider [...] Screening with HPV 1999 Mammogram Screening 2009 Pneumococcal Vaccine: 50+ Ye ars (1 of 1 - PCV) 2019 Zoster Vaccines (1 of 2) 2019 COVID-19 Vaccine (2023-2 5 season) 2024 Meningococcal B Vaccine Aged Out No l onger eligible based on patient's age to complete this topic Meningococcal Vaccine Aged Out No mike cheo eligible based on patient's age to complete this topic RSV Immunizations Under 20 Months Aged Out No longer eligible based on patient's age to complete this topic
[2024-12-27 16:26] LABS: Hematocrit 33.6 % (35.0-49.0); Mean Corpuscular HGB Conc 29.8 g/dL (32-36); Mean Corpuscular Hemoglobin 22.7 pg (27.0-31.0); Mean Corpuscular Volume 76.4 fL (78.0-102.0); Mean Platelet Volume 9.5 fl (9.2-11.8); Platelet Count Result 292 K/mm3 (150-420); Red Cell Distribution Width 15.8 % (11.6-14.4); White Blood Count 7.1 K/mm3 (4.8-10.8)
[2024-12-27 16:46] LABS: Alanine Aminotransferase 32 U/L (6-35); Albumin Level 3.9 g/dL (3.5-5.1); Alkaline Phosphatase 89 U/L (38-126); Anion Gap 10 mmol/L (4-12); Aspartate Amino Transferase 35 U/L (14-36); Bilirubin,Total 0.6 mg/dL (0.2-1.3); Blood Urea Nitrogen 13 mg/dL (7-17); Calcium 8.1 mg/dL (8.4-10.2); Carbon Dioxide 23 mmol/L (22-30); Chloride 102 mmol/L (98-107); Estimated Glomerular Filt Rate 50; Glucose 147 mg/dL (65-110); Iron 39 ug/dL (37-170); Osmolality Calculated 283 mOsm/kg (285-295); Potassium 3.7 mmol/L (3.4-5.0); Sodium 135 mmol/L (137-145); Total Protein 6.6 g/dL (6.3-8.2)
[2024-12-27 16:55] LABS: Percent Iron Saturation 10 % (20-50)
[2024-12-27 17:03] LABS: Free T4 Free Thyroxine 1.47 ng/dL (0.78-2.19)
[2024-12-27 17:15] LABS: Rheumatoid Factor Screen Negative (Negative)
[2024-12-28 09:29] LABS: Hemoglobin A1C 5.8 % (<5.7)
[2024-12-28 18:47] LABS: Total Triiodothyronine (T3) 74 ng/dL (76-181)
[2024-12-29 16:33] LABS: Anti Cyclic Citrullinated Pept <16 UNITS
[2024-12-30 16:49] LABS: Anti Nuclear Antibody Titer 1:40 titer
== END 2024-12-27 15:58 | disposition home or self-care (01) ==
PROVIDERS: PCP Family Medicine; Visit Provider Family Medicine
DX: D50.9 Iron deficiency anemia, unspecified (principal); E03.9 Hypothyroidism, unspecified; M25.511 Pain in right shoulder; M19.011 Primary osteoarthritis, right shoulder
CPT/HCPCS: 36415; 73030; 80053; 82728; 83036; 83540; 83550; 84439; 84443; 84480; 85027; 86038; 86039; 86200; 86430

== ENCOUNTER 2025-03-05 11:13 | Outpatient (CLI) | payer OTHER, SELFPAY ==
--- OUTSIDE RECORDS SUMMARY | 2025-03-05 11:19 | XMS_ITS | Clinical Summary ---
Author Organization [facility] Address [address] [place] [address] Care Team Providers Care Verify Rep Name Role Phone Unavailable Primary Care Provider [...]
--- OUTSIDE RECORDS SUMMARY | 2025-03-05 11:19 | XMS_ITS | Referral Summary ---
Author Organization [facility] Medical Office Building B Address [address] [place] [address] Care Team Providers Care Ground Equipment Mechanic Name Role Phone Omari Foster MD Primary Care Provide r Encounters Date Type Department Care Team Description 01/20/2025 Results Follow-Up [facility] - [facility] [address] [facility] [address] [place] [address] Tanvi Castillo, CT Soft Tissue Neck without Contrast 01/18/2025 4:00 PM CDT Lab [address] [address] 01/18/2025 1:56 PM CDT - 01/18/2025 11:59 PM CDT Hospital Encounter [facility] Imaging and Radiology [address] [place] [address] Acute recurrent sialoadenitis Discharge Disposition: Discharge to home or self care 01/18/2025 3:30 PM CDT Office Visit [facility] [address] [place] [phone] Sohan Martinez MD Postoperative hypothyroidism (Primary Dx); Morbid obesity with BMI of 45.0-49.9, adult (HCC) from Last 3 Months Allergies No known active allergies Medications irbesartan-hydr ochlorothiazide (AVALIDE) 150-12.5 mg per tablet Take 1 tablet by mouth daily Active citalopram (CeleXA) 40 mg tablet Take 1 tablet (40 mg total) by mouth daily Active omeprazole (PriLOSEC) 40 mg capsuleIndicati ons:Laryngeal spasm Take 1 capsule (40 mg total) by mouth daily 30 capsule 11 4 06/07/20 25 Active ALPRAZolam (XANAX) 0.5 mg tablet nightly as needed 4 Active zolpidem (AMBIEN) 10 mg tablet 1 tablet (10 mg total) nightly as needed 4 Active valACYclovir (VALTREX) 1 gram tablet as needed 4 Active loratadine (CLARITIN) 10 mg tablet 4 Active omeprazole (PriLOSEC) 20 mg capsule 5 Active Synthroid 88 mcg tablet Take 1 tablet (88 mcg total) by mouth blood bank specialist before breakfast Total daily dose 188 mcg Active Synthroid 100 mcg tablet Take 1 tablet (100 mcg total) by mouth blood bank specialist before breakfast Total daily dose 188 mcg Active Active Problems Problem Noted Date Diagnosed Date Chest pain 01/28/2025 Palpitations 01/28/2025 Morbid obesity with BMI of 45.0-49.9, adult 01/09 Seasonal allergic rhinitis due to pollen 024 [...] t 02/22/2014 Overview (11/15/2016): COMN MIGRNE WO NTRC MGRN Hypothyroidism 12/25/2013 Overview (11/14/2016): HYPOTHYROIDISM NOS [...] on file 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 Gender Identity Not on file Sexual Orientation Not on file Last Filed Vital Signs Vital Sign Reading Time Taken Comments Blood Pressure 128/82 01/18/2025 2:58 PM CDT Pulse 66 01/18/2025 2:58 PM CDT Temperature 36.6 C (97.9 F) 07/20/2024 11:21 AM EXTRUSION DIE TEMPLATE MAKER Respiratory Rate 16 01/18/2025 2:58 PM CDT Oxygen Saturation 97% 07/20/2024 11:21 AM EXTRUSION DIE TEMPLATE MAKER Inhaled Oxygen Concentration - - Weight 130.2 kg (287 lb) 01/18/2025 2:58 PM CDT Height 167.6 cm (5' 6) 01/18/2025 2:58 PM CDT Body Mass Index 46.32 01/18/2025 2:58 PM CDT Plan of Treatment Not on file Procedures Procedure Name Priority Date/Time Associated Diagnosis Comments CT SOFT TISSUE NECK WO CONTRAST Schedule Routine, Read Routine (OP Routine) 01/18/2025 2:11 PM CDT Acute recurrent sialoadenitis from Last 3 Months Results * CT Soft Tissue Neck without Contrast (01/18/2025 2:11 PM CDT) Anatomical Region Laterality Modality Head and Neck N/A Computed Tomogra phy 01/18/2025 2:24 PM CDT Impressions 01/18/2025 2:24 PM CDT PROMINENT LYMPH NODES THE LARGEST LEVEL 2 RIGHT SIDE. NO CALCULI SEEN. NO INFLAMMATORY CHANGES IN THE SALIVARY GLANDS Electronically signed by: Manuel Palma M.D. Narrative 01/18/2025 2:24 PM CDT EXAMINATION: CT SOFT TISSUE NECK WO CONTRAST ORDER DATE: 01/18/2025 2:00 PM HISTORY: 54-year-old woman cervical lymphadenopathy, history of sialadenitis TECHNIQUE: Noncontrast spiral CT of the neck with multiplanar reconstructions FINDINGS: No priors. Laundry Presser radiograph demonstrates no acute abnormalities. The visualized portions of the intracranial cavity are normal. Orbits are normal. Nasopharyngeal parapharyngeal soft tissue spaces are normal. The parotid salivary glands are normal. Submandibular glands are normal in size. No inflammatory changes are seen. No radiopaque calculi are seen within the salivary glands or ducts. No evidence of syelectasis. Level 2 lymph nodes seen bilaterally larger on the right than the left measuring 1.3 cm in diameter. Multiple smaller lymph nodes subcentimeter in size seen bilaterally level 2, posterior triangle, level 1A and level 1B. The tongue and base of tongue appear to be normal. Infrahyoid neck demonstrates normal laryngeal cartilages. Thyroid gland is normal. The thoracic inlet is normal. Lung apices normal. Sagittal coronal images confirm bilateral lymph node prominence greater on the right than the left. Normal alignment of the cervical spine with mild spondylitic changes Procedure Note Manuel Palma MD - 01/18/2025 EXAMINATION: CT SOFT TISSUE NECK WO CONTRAST ORDER DATE: 01/18/2025 2:00 PM HISTORY: 54-year-old woman cervical lymphadenopathy, history of sialadenitis TECHNIQUE: Noncontrast spiral CT of the neck with multiplanar reconstructions FINDINGS: No priors. Laundry Presser radiograph demonstrates no acute abnormalities. The visualized portions of the intracranial cavity are normal. Orbits are normal. Nasopharyngeal parapharyngeal soft tissue spaces are normal. The parotid salivary glands are normal. Submandibular glands are normal in size. No inflammatory changes are seen. No radiopaque calculi are seen within the salivary glands or ducts. No evidence of syelectasis. Level 2 lymph nodes seen bilaterally larger on the right than the left measuring 1.3 cm in diameter. Multiple smaller lymph nodes subcentimeter in size seen bilaterally level 2, posterior triangle, level 1A and level 1B. The tongue and base of tongue appear to be normal. Infrahyoid neck demonstrates normal laryngeal cartilages. Thyroid gland is normal. The thoracic inlet is normal. Lung apices normal. Sagittal coronal images confirm bilateral lymph node prominence greater on the right than the left. Normal alignment of the cervical spine with mild spondylitic changes IMPRESSION: PROMINENT LYMPH NODES THE LARGEST LEVEL 2 RIGHT SIDE. NO CALCULI SEEN. NO INFLAMMATORY CHANGES IN THE SALIVARY GLANDS Electronically signed by: Manuel Palma M.D. Tanvi Castillo DO IMG CT PROCEDURES Final Resu lt from Last 3 Months Insurance [facility] Care Teams Ground Equipment Mechanic Relationship Specialty Start Date End Date Omari Foster MD [address] [place] [address] PCP - General 02/16/19
--- OUTSIDE RECORDS SUMMARY | 2025-03-05 11:19 | XMS_ITS | Encounter Summary ---
Author Organization [facility] Address [address] [place] [address] Care Team Providers Care Brand Coordinator Name Role Phone Omari Foster MD Primary [...] pain [R10.9] Diarrhea, unspecified type [R19.7] Procedures WA COLONOSCOPY FLX DX W/COLLJ SPEC WHEN PFRMD COLONOSCOPY Referral ID Status Reason Start Date Expiration Date Visits Re quested Visits Authorized [id number] 1 1 Encounter Details Date Type Department Care Team (Late Contact Info) Description 03/09/2024 Hospital Encounter [facility] [address] [place] [address] Reid Alfaro MD [address] [place] [id number] Social History Tobacco Use Types Packs/Day Years Used Date Smoking Tobacco: Never Passive Smoke Exposure: Never Smokeless Tobacco: Never Alcohol Use Standard Drinks/Week Comments Yes 0 (1 standard drink = 0.6 oz pur e alcohol) Comments Unknown Sex and Gender Information Value Date Recorded Sex Assigned at Not on file 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
--- OUTSIDE RECORDS SUMMARY | 2025-03-05 11:19 | XMS_ITS | Clinical Summary ---
Author Organization [facility] Medical Office Building B Address [address] [place] [address] Care Team Providers Care Digital Project Manager Name Role Phone Omari Foster MD Primary Care Provide r Allergies No known active allergies Medications irbesartan-hydr [...] 1 tablet (88 mcg total) by mouth clinical pharmacologist before breakfast Total daily dose 188 mcg Active Synthroid 100 mcg tablet Take 1 tablet (100 mcg total) by mouth clinical pharmacologist before breakfast Total daily dose 188 mcg [...] t 02/22/2014 Overview (11/15/2016): COMN MIGRNE WO [facility] MGRN Hypothyroidism 12/25/2013 Overview (11/14/2016): HYPOTHYROIDISM NOS Generalized anxiety disorder 12/25/2013 Overview (11/15/2016): GENERALIZED ANXIETY DIS Persistent insomnia 12/25/2013 Overview (11/15/2016): PERSISTENT INSOMNIA Encounters Date Type Department Care Team Description 01/20/2025 Results Follow-Up [facility] Specialists - [facility] [address] [place] [phone] Tanvi Castillo, DO CT Soft Tissue Neck without Contrast 01/18/2025 4:00 PM CDT Lab [facility] [id number] [place] [phone] 01/18/2025 3:30 PM CDT Office Visit [facility] [address] [place] [address] [address] [place] [address] Sohan Martinez MD Postoperative hypothyroidism (Primary Dx); Morbid obesity with BMI of 45.0-49.9, adult ([facility]) 01/18/2025 1:56 PM CDT - 01/18/2025 11:59 PM CDT Hospital Encounter [facility] Imaging and Radiology [address] [place] [address] Acute recurrent sialoadenitis Discharge Disposition: Discharge to home or self care from Last 3 Months Surgical History Surgery [...] on file Legal Sex Female 11:57 PM CHECK CLERK Gender Identity Not on file Sexual Orientation Not on file Obstetrics History Last Filed Vital Signs Vital Sign Reading Time Taken Comments Blood Pressure 128/82 01/18/2025 2:58 PM CDT Pulse 66 01/18/2025 2:58 PM CDT Temperature 36.6 C (97.9 F) 07/20/2024 11:21 AM CHECK CLERK Respiratory Rate 16 01/18/2025 2:58 PM CDT Oxygen Saturation 97% 07/20/2024 11:21 AM CHECK CLERK Inhaled Oxygen Concentration - - Weight 130.2 kg (287 lb) 01/18/2025 2:58 PM CDT Height 167.6 cm (5' 6) 01/18/2025 2:58 PM CDT Body Mass Index 46.32 01/18/2025 2:58 PM CDT Plan of Treatment Health Maintenance Due Date Last Done Comments Breast Cancer Screening-Mammogram 1969 Cervical Cancer Screening 1969 Colon Cancer Screening-Colonoscopy 1969 Depression Screening 1969 Hepatitis C Screening 1969 DTaP/Tdap/Td Vaccine (1 - Tdap) 1980 Hepatitis B Screening 1987 Regular Well Visit/Exam 18-64 1987 Pneumococcal vaccine <65 (1 of 2 - PCV) 1988 Zoster Vaccine (1 of 2) 2019 Covid-19 Vaccine (3 - season) 2024, 11/26/2021 Influenza Vaccine (#1) 2025 Procedures Procedure Name Priority Date/Time Associated Diagnosis [...] neck with multiplanar reconstructions FINDINGS: No priors. Regional Engagement Consultant radiograph demonstrates no acute abnormalities. The visualized [...] neck with multiplanar reconstructions FINDINGS: No priors. Regional Engagement Consultant radiograph demonstrates no acute abnormalities. The visualized [...] Resu lt from Last 3 Months Insurance [facility] Care Teams Digital Project Manager Relationship Specialty Start Date End Date Omari Foster MD [address] [place] [address] [facility] - General 02/16/19
--- OUTSIDE RECORDS SUMMARY | 2025-03-05 11:19 | XMS_ITS | Encounter Summary ---
Author Organization [facility] Healthcare Address [address] [place] [address] Care Team Providers Care Ell Teacher Name Role Phone Omari Foster MD Primary Care Provide r Encounter Details Date Type Department Care Team (Late st Contact Info) Description 01/20/2025 Results Follow-Up [facility] Medical Group ENT Specialists - [facility] [address] [facility] [address] [place] [phone] Tanvi Castillo, [address] [facility] [address] [place] [address] CT Soft Tissue Neck without Contrast Social History Tobacco Use Types Packs/Day Years Used Date Smoking Tobacco: Never Passive Smoke Exposure: Never Smokeless Tobacco: Never Alcohol Use Standard Drinks/Week Comments Yes 0 (1 standard drink = 0.6 oz pur e alcohol) Comments Unknown Sex and Gender Information Value Date Recorded Sex Assigned at Not on file 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
[2025-03-05 12:23] LABS: Free T3 4.06 pg/mL (2.71-6.16); Free T4 Free Thyroxine 1.56 ng/dL (0.78-2.19)
[2025-03-05 12:36] LABS: Thyroid Stimulating Hormone 1.920 uIU/mL (0.465-4.680)
[2025-03-07 09:08] LABS: FSH 45.6 mIU/mL (.)
[2025-03-10 14:08] LABS: Estradiol, Sensitive 16.5 pg/mL (.)
== END 2025-03-05 11:14 | disposition home or self-care (01) ==
LOC: ANHLAB 11:17
PROVIDERS: PCP Family Medicine; Referring Provider Internal Medicine Endocrinology, Diabetes & Metabolism; Visit Provider Obstetrics & Gynecology
DX: E89.0 Postprocedural hypothyroidism (principal); Z78.0 Asymptomatic menopausal state
CPT/HCPCS: 36415; 82670; 83001; 84439; 84443; 84481